=== PATIENT | male | born 1945 | race Caucasian/White ===

== ENCOUNTER 2018-05-18 01:53 | Outpatient (CLI) | payer OTHER, SELFPAY ==
[2018-05-18 11:16] LABS: INR 3.1 (1.0-3.5); Prothrombin Time 29.4 sec (9.3-10.8)
== END 2018-05-18 02:13 ==
PROVIDERS: Emergency Medicine; PCP Family Medicine; Visit Provider Family Medicine
DX: I48.91 Unspecified atrial fibrillation (principal); Z79.01 Long term (current) use of anticoagulants
CPT/HCPCS: 36415; 85610

== ENCOUNTER 2018-06-03 07:53 | Outpatient (CLI) | payer OTHER, SELFPAY ==
[2018-06-03 11:43] LABS: INR 1.9 (1.0-3.5); Prothrombin Time 17.8 sec (9.3-10.8)
== END 2018-06-03 08:13 ==
PROVIDERS: Emergency Medicine; PCP Family Medicine; Visit Provider Family Medicine
DX: I48.91 Unspecified atrial fibrillation (principal); Z79.01 Long term (current) use of anticoagulants
CPT/HCPCS: 36415; 85610

== ENCOUNTER 2018-06-03 08:59 | Outpatient (CLI) | payer OTHER, SELFPAY ==
[2018-05-26 13:11] LABS: Prothrombin Time 38.7 sec (9.3-10.8)
[2018-05-26 13:14] LABS: INR 4.2 (1.0-3.5)
== END 2018-06-03 09:19 ==
PROVIDERS: Emergency Medicine; PCP Family Medicine; Visit Provider Family Medicine
DX: I48.91 Unspecified atrial fibrillation (principal); Z79.01 Long term (current) use of anticoagulants
CPT/HCPCS: 36415; 85610

== ENCOUNTER 2018-06-17 02:51 | Outpatient (CLI) | payer OTHER, SELFPAY ==
[2018-06-17 13:24] LABS: INR 2.9 (1.0-3.5); Prothrombin Time 27.6 sec (9.3-10.8)
== END 2018-06-17 03:11 ==
PROVIDERS: PCP Family Medicine; Visit Provider Family Medicine
DX: I48.91 Unspecified atrial fibrillation (principal); Z79.01 Long term (current) use of anticoagulants
CPT/HCPCS: 36415; 85610

== ENCOUNTER 2018-08-16 01:10 | Outpatient (CLI) | payer OTHER, SELFPAY ==
[2018-08-16 12:00] LABS: INR 3.3 (1.0-3.5); Prothrombin Time 31.1 sec (9.3-10.8)
[2018-08-16 12:22] LABS: Uric Acid 6.5 mg/dL (3.5-7.2)
[2018-08-16 12:31] LABS: Hemoglobin A1C 6.3 % (4.5-6.2)
== END 2018-08-16 01:30 ==
PROVIDERS: Emergency Medicine; PCP Family Medicine; Visit Provider Family Medicine
DX: E11.9 Type 2 diabetes mellitus without complications (principal); M10.9 Gout, unspecified; I48.91 Unspecified atrial fibrillation; Z79.01 Long term (current) use of anticoagulants
CPT/HCPCS: 36415; 83036; 84550; 85610

== ENCOUNTER 2018-08-23 02:06 | Outpatient (CLI) | payer OTHER, SELFPAY ==
[2018-08-23 11:19] LABS: INR 2.5 (1.0-3.5); Prothrombin Time 23.2 sec (9.3-10.8)
== END 2018-08-23 02:26 ==
PROVIDERS: PCP Family Medicine; Visit Provider Family Medicine
DX: I48.91 Unspecified atrial fibrillation (principal); Z79.01 Long term (current) use of anticoagulants
CPT/HCPCS: 36415; 85610

== ENCOUNTER 2018-08-29 00:27 | Outpatient (CLI) | payer OTHER, SELFPAY ==
--- NOTE | 2018-08-29 09:46 | DI.RAD_ITS ---
SYMPTOMS/DIAGNOSIS: DYSPHAGIA, PILLS GET CAUGHT IN THROAT, R13.10 BARIUM SWALLOW: Fluoroscopy Time: 00.59 Routine examination was performed. There is penetration into the upper airway but not below the vocal cords. No evi aspiration was identified during the examination. The swallowing mechanism was otherwise unremarkable. No gastroesophageal reflux is present. There is a small hiatal hernia. No ulcers, strictures, intrinsic or extrinsic masses are seen. The patient was able to swallow a barium tablet without difficulty. The heart size is within normal limits. The patient has both an aortic and mitral valve replacement. There is a small to moderate sized left pleural effusion. IMPRESSION: 1. Penetration during swallowing without evi aspiration. 2. Small hiatal hernia. No evidence of gastroesophageal reflux. 3. Small to moderate sized left pleural effusion.
[2018-08-29] MEDS: Barium Sulfate 60% W/V 355 ML BTL PO (12:30)
== END 2018-08-29 00:47 ==
PROVIDERS: PCP Family Medicine; Visit Provider Family Medicine
DX: R13.10 Dysphagia, unspecified (principal); K44.9 Diaphragmatic hernia without obstruction or gangrene; J90 Pleural effusion, not elsewhere classified
CPT/HCPCS: 74220; J3490

== ENCOUNTER 2018-09-21 01:09 | Outpatient (CLI) | payer OTHER, SELFPAY ==
[2018-09-21 12:00] LABS: INR 2.1 (0.9-1.1); Prothrombin Time 21.1 sec (9.3-11.0)
== END 2018-09-21 01:29 ==
PROVIDERS: PCP Family Medicine; Visit Provider Family Medicine
DX: I48.91 Unspecified atrial fibrillation (principal); Z79.01 Long term (current) use of anticoagulants
CPT/HCPCS: 36415; 85610

== ENCOUNTER 2018-11-17 08:45 | Outpatient (CLI) | payer OTHER, SELFPAY ==
[2018-11-17 11:28] LABS: INR 2.7 (0.9-1.1); Prothrombin Time 27.4 sec (9.3-11.0)
== END 2018-11-17 09:05 ==
PROVIDERS: Emergency Medicine; PCP Family Medicine; Visit Provider Family Medicine
DX: I48.91 Unspecified atrial fibrillation (principal); Z79.01 Long term (current) use of anticoagulants
CPT/HCPCS: 36415; 85610

== ENCOUNTER 2019-01-31 08:20 | Outpatient (CLI) | payer OTHER, SELFPAY ==
[2019-01-31 11:15] LABS: Prothrombin Time 29.9 sec (9.3-11.0)
== END 2019-01-31 08:40 ==
PROVIDERS: Emergency Medicine; PCP Family Medicine; Visit Provider Family Medicine
DX: I48.91 Unspecified atrial fibrillation (principal); Z79.01 Long term (current) use of anticoagulants
CPT/HCPCS: 36415; 85610

== ENCOUNTER 2019-02-17 03:08 | Outpatient (CLI) | payer OTHER, SELFPAY ==
[2019-02-17 13:16] LABS: Prothrombin Time 40.5 sec (9.3-11.0)
== END 2019-02-17 03:28 ==
PROVIDERS: Emergency Medicine; PCP Family Medicine; Visit Provider Family Medicine
DX: I48.91 Unspecified atrial fibrillation (principal); Z79.01 Long term (current) use of anticoagulants
CPT/HCPCS: 36415; 85610

== ENCOUNTER 2019-02-22 07:47 | Outpatient (CLI) | payer OTHER, SELFPAY ==
[2019-02-22 13:05] LABS: INR 2.2 (0.9-1.1); Prothrombin Time 21.7 sec (9.3-11.0)
== END 2019-02-22 08:07 ==
PROVIDERS: PCP Family Medicine; Visit Provider Family Medicine
DX: I48.91 Unspecified atrial fibrillation (principal); Z79.01 Long term (current) use of anticoagulants
CPT/HCPCS: 36415; 85610

== ENCOUNTER 2019-03-02 01:22 | Outpatient (CLI) | payer OTHER, SELFPAY ==
[2019-03-02 10:01] LABS: INR 1.4 (0.9-1.1)
[2019-03-02 10:05] LABS: Hemoglobin A1C 6.8 % (4.5-6.2)
[2019-03-02 10:13] LABS: ALT 27 U/L (12-78); AST 26 U/L (15-37); Albumin 3.7 g/dL (3.4-5.0); Alkaline Phosphatase 96 U/L (46-116); Anion Gap 11.4 mmol/L (3-11); BUN 18 mg/dL (7-18); Bilirubin, Total 0.6 mg/dL (0.2-1.0); CO2 27.6 mmol/L (21.0-32.0); CREATININE 1.24 mg/dL (0.70-1.30); Calcium 9.4 mg/dL (8.5-10.1); Calculated LDL 78; Chloride 101 mmol/L (98-107); Cholesterol 167 mg/dL (50-200); Estimated GFR 57.47 (mL/min/1.73m2); Glucose 229 mg/dL (70-100); HDL Cholesterol 29 mg/dL (40-60); Potassium 4.4 mmol/L (3.5-5.1); Sodium 140 mmol/L (136-145); Total Protein 7.5 g/dL (6.4-8.2); Triglyceride 303 mg/dL (30-150)
[2019-03-02 10:23] LABS: COMMENT (LAB VIEW ONLY) 194.42 mg/dL; Microalb ug/mg Crea 185.4 ug/mg Cr
[2019-03-02 10:42] LABS: Uric Acid 7.1 mg/dL (3.5-7.2)
== END 2019-03-02 01:42 ==
PROVIDERS: PCP Family Medicine; Visit Provider Family Medicine
DX: E11.9 Type 2 diabetes mellitus without complications (principal); I10 Essential (primary) hypertension; I25.10 Atherosclerotic heart disease of native coronary artery without angina pectoris; M10.9 Gout, unspecified; I48.91 Unspecified atrial fibrillation; Z79.01 Long term (current) use of anticoagulants
CPT/HCPCS: 36415; 80053; 80061; 83721; 82043; 82570; 83036; 84550; 85610

== ENCOUNTER 2019-03-09 01:42 | Outpatient (CLI) | payer OTHER, SELFPAY ==
[2019-03-09 13:04] LABS: INR 2.8 (0.9-1.1); Prothrombin Time 27.8 sec (9.3-11.0)
== END 2019-03-09 02:02 ==
PROVIDERS: Emergency Medicine; PCP Family Medicine; Visit Provider Family Medicine
DX: I48.91 Unspecified atrial fibrillation (principal); Z79.01 Long term (current) use of anticoagulants
CPT/HCPCS: 36415; 85610

== ENCOUNTER 2019-03-30 20:10 | Outpatient (CLI) | payer OTHER, SELFPAY ==
--- NOTE | 2019-03-30 15:00 | DI.RAD_ITS ---
SYMPTOM/DIAGNOSIS: CHEST CONGESTION, R09.89 PA AND LATERAL CHEST: There is an apparent small left pleural effusion and volume loss involving the left lower lobe. The right lung is well expanded and clear. There is no right pleural effusion. The heart is not enlarged in this patient who is status post CABG and MVR. The hilar structures, mediastinum and tracheal air column are intact. SUMMARY: Small left pleural effusion, question area of infiltration or atelectasis involving the left lower lobe. The possibility of an acute pneumonitis could not be excluded in this patient and follow up images are requested when clinically appropriate or in 6-8 weeks.
[2019-03-30 15:32] LABS: Abs Immature Grans 0.02 k/cumm (0.0-0.09); Absolute Basophil Count 0.02 k/cumm (0.0-0.2); Absolute Eosinophil Count 0.18 k/cumm (0.0-0.7); Absolute Lymphocyte Count 1.35 k/cumm (1.2-3.4); Absolute Monocyte Count 1.04 k/cumm (0.11-0.7); Absolute Neutrophil Count 6.69 k/cumm (1.2-6.7); Basophils % 0.2; Eosinophils % 1.9; HCT 37.7 % (40.0-50.0); HGB 12.8 g/dL (13.5-17.5); Immature Grans % 0.2; Lymphocytes % 14.5; Mean Corpuscular Hemoglobin 32.6 pg (27.0-33.0); Mean Corpuscular Volume 95.9 fL (80-95); Mean Platelet Volume 9.8 fL (8.0-11.0); Monocytes % 11.2; Platelet Count 232 x1000/uL (130-400); RBC 3.93 m/cumm (4.50-6.00); RBC Distribution Width 13.9 % (11.8-14.1)
[2019-03-30 16:18] LABS: ALT 27 U/L (12-78); AST 25 U/L (15-37); Albumin 3.6 g/dL (3.4-5.0); Alkaline Phosphatase 89 U/L (46-116); Anion Gap 14.3 mmol/L (3-11); BUN 14 mg/dL (7-18); Bilirubin, Total 0.3 mg/dL (0.2-1.0); C-Reactive Protein 0.23 mg/dL (0.0-0.3); CO2 21.7 mmol/L (21.0-32.0); Calcium 9.6 mg/dL (8.5-10.1); Chloride 102 mmol/L (98-107); Glucose 150 mg/dL (70-100); Potassium 4.3 mmol/L (3.5-5.1); Sodium 138 mmol/L (136-145); Total Protein 7.4 g/dL (6.4-8.2)
[2019-03-30 16:53] LABS: ESR 48 mm/hr (1-20)
== END 2019-03-30 20:30 ==
PROVIDERS: PCP Family Medicine; Visit Provider Family Medicine
DX: R09.89 Other specified symptoms and signs involving the circulatory and respiratory systems (principal); E11.9 Type 2 diabetes mellitus without complications; I10 Essential (primary) hypertension; J06.9 Acute upper respiratory infection, unspecified; R23.2 Flushing; R61 Generalized hyperhidrosis; J90 Pleural effusion, not elsewhere classified; Z95.1 Presence of aortocoronary bypass graft; Z95.2 Presence of prosthetic heart valve
CPT/HCPCS: 36415; 80053; 85652; 87040; 71046; 85025; 86140

== ENCOUNTER 2019-04-03 09:33 | Outpatient (CLI) | payer OTHER, SELFPAY ==
[2019-04-03 13:16] LABS: Prothrombin Time 50.6 sec (9.3-11.0)
== END 2019-04-03 09:53 ==
PROVIDERS: PCP Family Medicine; Visit Provider Family Medicine
DX: I48.91 Unspecified atrial fibrillation (principal); Z79.01 Long term (current) use of anticoagulants
CPT/HCPCS: 36415; 85610

== ENCOUNTER 2019-04-06 02:06 | Outpatient (CLI) | payer OTHER, SELFPAY ==
[2019-04-06 13:11] LABS: INR 1.6 (0.9-1.1); Prothrombin Time 15.6 sec (9.3-11.0)
== END 2019-04-06 02:26 ==
PROVIDERS: Emergency Medicine; PCP Family Medicine; Visit Provider Family Medicine
DX: I48.91 Unspecified atrial fibrillation (principal); Z79.01 Long term (current) use of anticoagulants
CPT/HCPCS: 36415; 85610

== ENCOUNTER 2019-04-14 04:17 | Outpatient (CLI) | payer OTHER, SELFPAY ==
[2019-04-14 11:18] LABS: INR 2.2 (0.9-1.1); Prothrombin Time 22.5 sec (9.3-11.0)
== END 2019-04-14 04:37 ==
PROVIDERS: Emergency Medicine; PCP Family Medicine; Visit Provider Family Medicine
DX: I48.91 Unspecified atrial fibrillation (principal); Z79.01 Long term (current) use of anticoagulants
CPT/HCPCS: 36415; 85610

== ENCOUNTER 2019-04-27 08:52 | Outpatient (CLI) | payer OTHER, SELFPAY ==
[2019-04-27 13:21] LABS: Prothrombin Time 25.7 sec (9.3-11.0)
[2019-04-27 13:25] LABS: INR 2.5 (0.9-1.1)
== END 2019-04-27 09:12 ==
PROVIDERS: PCP Family Medicine; Visit Provider Family Medicine
DX: I48.91 Unspecified atrial fibrillation (principal); Z79.01 Long term (current) use of anticoagulants
CPT/HCPCS: 36415; 85610

== ENCOUNTER 2019-05-29 08:18 | Outpatient (CLI) | payer OTHER, SELFPAY ==
[2019-05-29 13:40] LABS: INR 3.1 (0.9-1.1)
== END 2019-05-29 08:38 ==
PROVIDERS: PCP Family Medicine; Visit Provider Family Medicine
DX: I48.91 Unspecified atrial fibrillation (principal); Z79.01 Long term (current) use of anticoagulants
CPT/HCPCS: 36415; 85610

== ENCOUNTER 2019-06-27 02:18 | Outpatient (CLI) | payer OTHER, SELFPAY ==
[2019-06-27 14:13] LABS: Hemoglobin A1C 6.7 % (4.5-6.2)
[2019-06-27 14:29] LABS: Prothrombin Time 23.1 sec (9.3-11.0)
[2019-06-27 14:30] LABS: INR 2.3 (0.9-1.1)
== END 2019-06-27 02:38 ==
PROVIDERS: PCP Family Medicine; Visit Provider Family Medicine
DX: I48.91 Unspecified atrial fibrillation (principal); Z79.01 Long term (current) use of anticoagulants; E11.9 Type 2 diabetes mellitus without complications
CPT/HCPCS: 36415; 83036; 85610

== ENCOUNTER 2019-07-28 01:53 | Outpatient (CLI) | payer OTHER, SELFPAY ==
[2019-07-28 14:26] LABS: INR 2.7 (0.9-1.1); Prothrombin Time 26.9 sec (9.3-11.0)
== END 2019-07-28 02:13 ==
PROVIDERS: PCP Family Medicine; Visit Provider Family Medicine
DX: I48.91 Unspecified atrial fibrillation (principal); Z79.01 Long term (current) use of anticoagulants
CPT/HCPCS: 36415; 85610

== ENCOUNTER 2019-08-30 01:20 | Outpatient (CLI) | payer OTHER, SELFPAY ==
[2019-08-30 14:12] LABS: INR 2.5 (0.9-1.1)
== END 2019-08-30 01:40 ==
PROVIDERS: PCP Family Medicine; Visit Provider Family Medicine
DX: I48.91 Unspecified atrial fibrillation (principal); Z79.01 Long term (current) use of anticoagulants
CPT/HCPCS: 36415; 85610

== ENCOUNTER 2019-10-04 08:12 | Outpatient (CLI) | payer OTHER, SELFPAY ==
[2019-10-04 12:53] LABS: Prothrombin Time 19.5 sec (9.3-11.0)
== END 2019-10-04 08:32 ==
PROVIDERS: PCP Family Medicine; Visit Provider Family Medicine
DX: I48.91 Unspecified atrial fibrillation (principal); Z79.01 Long term (current) use of anticoagulants
CPT/HCPCS: 36415; 85610

== ENCOUNTER 2019-10-30 09:19 | Outpatient (CLI) | payer OTHER, SELFPAY ==
[2019-10-30 10:58] LABS: INR 2.9 (0.9-1.1); Prothrombin Time 28.4 sec (9.3-11.0)
== END 2019-10-30 09:39 ==
PROVIDERS: PCP Family Medicine; Visit Provider Family Medicine
DX: I48.91 Unspecified atrial fibrillation (principal); Z79.01 Long term (current) use of anticoagulants
CPT/HCPCS: 36415; 85610

== ENCOUNTER 2019-11-03 02:41 | Outpatient (CLI) | payer OTHER, SELFPAY ==
--- NOTE | 2019-11-03 10:00 | DI.US_ITS ---
APPROVED REPORT EXAM: Comprehensive 2D, Doppler, and color-flow Echocardiogram Patient Location: Out-Patient Picker / Packer: Shauna Briones RDCS ([place]) Indications: MV Annuloplasty, dilated aortic arch, AVR Conclusion Left Ventricle : Mild concentric left ventricular hypertrophy. The left ventricle is normal. The left ventricular systolic function is normal. The left ventricular ejection fraction is within the normal range. Left ventricular systolic function is normal. There is normal LV segmental wall motion. Diast olic function is indeterminate. LVEF is 55-59%. Right Ventricle : The right ventricle is normal size. The right ventricular systolic function is norm al. Atria : Left atrium is borderline dilated. Right atrium is borderline dilated. Aortic Valve : Bioprosthetic aortic valve is present. No aortic regurgitation is present. There is mi ld aortic stenosis (mean gradient 21mmhg) Mitral Valve : Annuloplasty ring is noted in the mitral position. Mild mitral regurgitation. No evide nce of mitral valve stenosis. Tricuspid Valve : The tricuspid valve is normal in structure. Mild tricuspid regurgitation. Great Vessels : The IVC was not visualized. Compared to echocardiogfram from 2017, there is anow a bioprosthetic aortic valve and mitral annulopl asty ring present. Wall motion Left Ventricle The left ventricle is normal. The left ventricular systolic function is normal. The left ventricular ejection fraction is within the normal range. Left ventricular systolic function is normal. Mild conc entric left ventricular hypertrophy. The posterior wall thickness is mildly increased. The septum is normal. There is normal LV segmental wall motion. Diastolic function is indeterminate. LVEF is 55-59% . Right Ventricle The right ventricle is normal size. The right ventricular systolic function is normal. Atria Left atrium is borderline dilated. Right atrium is borderline dilated. Aortic Valve Bioprosthetic aortic valve is present. There is mild aortic stenosis (mean gradient 21mmhg) No aortic regurgitation is present. Bioprosthetic aortic valve is present. Mitral Valve Annuloplasty ring is noted in the mitral position. No evidence of mitral valve stenosis. Mild mitral regurgitation. Annuloplasty ring is noted in the mitral position. Tricuspid Valve The tricuspid valve is normal in structure. Mild tricuspid regurgitation. Pulmonic Valve Pulmonic valve is not well visualized. There is no pulmonic valvular stenosis. Trace pulmonic regurgi tation. Great Vessels The ascending aorta is mildly dilated. The IVC was not visualized. 2D Dimensions IVSD d PLAX 1.20 cm M: 0.6-1.2 LV Vol A2C d MOD 221.1 mL LVPW d PLAX 1.28 cm M: 0.6 - 1.2 LV Vol A4C d MOD 219.9 mL LVID d PLAX 5.34 cm M: 4.2 - 5.8 LA vol/ BSA A2C s A-L 44.4 mL/m2 LVDs 3.95 cm M: 2.5 - 4.0 LA vol/ BSA A4C s A-L 42.8 mL/m2 Ao Root d 2.85 cm M: 3.1 - 3.7 LA Vol/ BSA Biplane s A-L 47.3 mL/m2 RA Area A4C 25.32 cm2 LA Area A4C s MOD 27.61 cm2 RA Vol/ BSA A4C s A-L 39.8 mL/m2 LA Area A2C s MOD 25.94 cm2 Ao Asc Diam d 4.14 cm M: 2.6 - 3.4 LV EF A4C MOD 55.2 % LV EF Teichholz 50.1 % LV EF A2C MOD 54.0 % LVEF (Arellano's) 55.45 % M: 52 - 72 LV EF Biplane MOD 55.4 % LV Volume 165.53 mL M: 62 - 150 LV Volume Index 75.58 mL/m2 M: 34 - 74 LV Vol Biplane MOD 227.5 mL FS 25.65 % LV Diastology E/A Ratio 2.6 MV E Vmax 1.44 (0.4-1.3 m/s) MV A Vmax 0.55 (0.4-1.3 m/s) MV E/A Ratio 2.54 Aortic Valve LVOT Area 2.23 cm2 AoV Area Vmax 0.98 cm2 LVOT Vmax 1.35 m/s AoV Area/ BSA (Vmax) 0.44 cm2/m2 LVOT Mean Jr. 0.87 m/s YAHIR Mean Jr. 0.88 cm2 LVOT Peak Grad 7.3 mmHg YAHIR Mean Jr. Index 0.40 cm2/m2 LVOT Mean Grad 3.6 mmHg LVOT VTI 0.351 m LVOT Diam s 1.65 cm (M/F) 1.5-2.5 AoV Vmax 3.09 (0.5-1.3 m/s) Velocity Ratio 0.43 AoV Mean Jr. 2.20 m/s AoV Peak Grad 38.1 mmHg LVOT SV 78.19 mL AoV Mean Grad 21.1 (<5 mmHg) AoV VTI 0.755 (0.18-0.25 m) AoV Area VTI 1.04 (2.5-4.5 cm2) AoV Area/ BSA (VTI) 0.47 cm/m2 Mitral Valve MV DT 307 (160-240 msec) MR Vmax 5.90 m/s MV PHT 89 msec MR VTI 2.479 m MV Area PHT 2.47 cm2 MR Peak Grad 139.2 mmHg MV VTI 0.607 m MR Mean Grad 91.9 mmHg MV Area VTI 1.29 (4.0-6.0 cm2) MR PISA Radius 0.48 cm MR EROA 0.11 cm2 MR Aliasing Velocity 0.43 m/s MR PISA 1.46 cm2 Pulmonary Valve PV Vmax 0.91 (0.5-1.5 m/s) PV Peak Grad 3.3 mmHg PV Mean Grad 1.9 mmHg PV VTI 0.201 m Tricuspid Valve TR Peak Grad 34.9 mmHg TR Vmax 2.96 m/s
== END 2019-11-03 03:01 ==
PROVIDERS: PCP Family Medicine; Visit Provider Family Medicine
DX: Z95.3 Presence of xenogenic heart valve (principal); I35.0 Nonrheumatic aortic (valve) stenosis; I08.1 Rheumatic disorders of both mitral and tricuspid valves
CPT/HCPCS: 93306

== ENCOUNTER 2019-11-16 10:26 | Outpatient (CLI) | payer OTHER, SELFPAY ==
[2019-11-16 13:24] LABS: Hemoglobin A1C 6.7 % (3.8-5.6)
== END 2019-11-16 10:46 ==
PROVIDERS: PCP Family Medicine; Visit Provider Family Medicine
DX: E11.9 Type 2 diabetes mellitus without complications (principal)
CPT/HCPCS: 36415; 83036

== ENCOUNTER 2019-11-20 10:27 | Outpatient (CLI) | payer OTHER, SELFPAY ==
[2019-11-20 11:05] LABS: Abs Immature Grans 0.03 k/cumm (0.0-0.09); Absolute Basophil Count 0.04 k/cumm (0.0-0.2); Absolute Lymphocyte Count 1.13 k/cumm (1.2-3.4); Absolute Monocyte Count 1.04 k/cumm (0.11-0.7); Absolute Neutrophil Count 7.47 k/cumm (1.2-6.7); Basophils % 0.4; HCT 35.3 % (40.0-50.0); HGB 12.1 g/dL (13.5-17.5); Immature Grans % 0.3 %; Lymphocytes % 11.4; Mean Corp. HGB Concentration 34.3 g/dL (32.0-36.0); Mean Corpuscular Hemoglobin 32.8 pg (27.0-33.0); Mean Corpuscular Volume 95.7 fL (80-95); Mean Platelet Volume 9.4 fL (8.0-11.0); Monocytes % 10.5; Neutrophils % 75.4; Platelet Count 319 x1000/uL (130-400); RBC 3.69 m/cumm (4.50-6.00); RBC Distribution Width 12.5 % (11.8-14.1); White Blood Cell Count 9.91 k/cumm (4.4-10.8)
[2019-11-20 12:19] LABS: ALT 24 U/L (16-63); AST 25 U/L (15-37); Albumin 3.2 g/dL (3.4-5.0); Alkaline Phosphatase 77 U/L (46-116); Anion Gap 10.6 mmol/L (3-11); BUN 24 mg/dL (7-18); Bilirubin, Total 0.3 mg/dL (0.2-1.0); C-Reactive Protein 4.18 mg/dL (0.0-0.3); CO2 24.4 mmol/L (21.0-32.0); CREATININE 1.17 mg/dL (0.70-1.30); Calcium 9.4 mg/dL (8.5-10.1); Chloride 102 mmol/L (98-107); ESR 94 mm/hr (1-20); Glucose 123 mg/dL (74-106); Potassium 4.5 mmol/L (3.5-5.1); Sodium 137 mmol/L (136-145); Total Protein 7.2 g/dL (6.4-8.2)
== END 2019-11-20 10:47 ==
LOC: LOS 10:27 → LBO 10:48
PROVIDERS: PCP Family Medicine; Visit Provider Family Medicine
DX: L03.90 Cellulitis, unspecified (principal); T14.8XXA Other injury of unspecified body region, initial encounter
CPT/HCPCS: 36415; 80053; 85652; 87040; 85025; 86140

== ENCOUNTER 2019-11-20 11:30 | Outpatient (CLI) | payer OTHER, SELFPAY ==
--- NOTE | 2019-11-20 11:15 | DI.RAD_ITS ---
EXAM: XR FOOT RT COMPLETE CLINICAL HISTORY: WOUND OF SKIN, T14.8XXA, ? OSTEOPMYELITIS/DM, M86.9. TECHNIQUE: 2D digital imaging was performed. COMPARISON: No exams were available for comparison FINDINGS: BONES: No acute fracture is present. There does appear to be a small erosion at the medial aspect of the head of the proximal phalanx of the great toe. There is a moderate-sized spur at the plantar orion face of the calcaneus. JOINTS: Moderate degenerative changes are seen at the 1st metatarsophalangeal joint characterized by joint space narrowing, subchondral sclerosis and periarticular spurring. There are mild degenerative changes seen at the interphalangeal joints of the foot and the talonavicular joint. SOFT TISSUE: There is soft tissue swelling of the foot. Vascular calcifications are present in the s oft tissues. IMPRESSION: 1. Small erosion at the medial aspect of the head of the proximal phalanx of the great toe. This can be seen with an inflammatory arthritis. Infection cannot be excluded. MRI may be considered for fu rther evaluation. 2. Degenerative changes of the right foot. The findings are most marked at the 1st metatarsophalange al joint. DATA REPOSITORY: RADIATION DOSE DELIVERED:
== END 2019-11-20 11:50 ==
PROVIDERS: PCP Family Medicine; Visit Provider Family Medicine
DX: M06.4 Inflammatory polyarthropathy (principal); M19.071 Primary osteoarthritis, right ankle and foot; S91.301A Unspecified open wound, right foot, initial encounter
CPT/HCPCS: 73630

== ENCOUNTER 2019-11-23 10:15 | Outpatient (CLI) | payer OTHER, SELFPAY ==
[2019-11-23 15:09] LABS: Prothrombin Time 29.8 sec (9.3-11.0)
== END 2019-11-23 10:35 ==
PROVIDERS: PCP Family Medicine; Visit Provider Family Medicine
DX: I48.91 Unspecified atrial fibrillation (principal); Z79.01 Long term (current) use of anticoagulants
CPT/HCPCS: 36415; 85610

== ENCOUNTER 2019-11-30 08:07 | Outpatient (CLI) | payer OTHER, SELFPAY ==
[2019-11-30 12:50] LABS: Prothrombin Time 27.9 sec (9.3-11.0)
[2019-11-30 13:17] LABS: INR 2.8 (0.9-1.1)
== END 2019-11-30 08:27 ==
PROVIDERS: PCP Family Medicine; Visit Provider Family Medicine
DX: I48.91 Unspecified atrial fibrillation (principal); Z79.01 Long term (current) use of anticoagulants
CPT/HCPCS: 36415; 85610

== ENCOUNTER 2019-12-04 01:57 | Outpatient (CLI) | payer OTHER, SELFPAY ==
--- NOTE | 2019-12-04 14:45 | DI.MRI_ITS ---
EXAM: MR LOWER EXTREMITY RT WO/W CLINICAL HISTORY: ? OSTEOMYLETIS, CELLULITIS, L03.90, INJURY,T14.8XXA TECHNIQUE: Multiplanar multisequence MRI was performed. COMPARISON: XR FOOT RT COMPLETE from 11/20/2019 FINDINGS: MR examination of the foot was performed according to the usual protocol with additional pre and post contrast T1 fat sat imaging. There is a hallux valgus deformity and there are prominent cystic dege nerative and hypertrophic changes of the head of 1st metatarsal and to a lesser degree the base of th e proximal phalanx of the great toe. No enhancement or other abnormal signal associated with these b ones. There is markedly abnormal signal of distal phalanx of the great toe appreciated on all pulse sequenc es with significant enhancement of the distal phalanx. Findings are suspicious for osteomyelitis. Abnormal signal also noted in all 3 phalanges of the 2nd toe and there is enhancement of the proximal middle and distal phalanx of the 2nd toe raising the possibility of osteomyelitis. I would note moy t the images of the 2nd toe are not of ideal technical quality and findings are to a degree inconclus kerri. No other significant bony signal abnormality identified in the midfoot or forefoot. No gross tendino us abnormality seen. No evidence of abscess. IMPRESSION: Findings highly suggestive of osteomyelitis of the distal phalanx of the great toe. Suspicion of ost eomyelitis of the proximal, middle and distal phalanges of the 2nd toe as well. Hallux valgus deformity with moderate to severe degenerative changes at the 1st MTP joint DATA REPOSITORY:
[2019-12-04] MEDS: Normal Saline Flush 10 ML SYR IVP (15:28)
[2019-12-04] MEDS: Gadoterate meglumine 20 ML VIAL IVP (15:29)
== END 2019-12-04 02:17 ==
PROVIDERS: PCP Family Medicine; Visit Provider Family Medicine
DX: L03.115 Cellulitis of right lower limb (principal); M86.171 Other acute osteomyelitis, right ankle and foot; M20.11 Hallux valgus (acquired), right foot; M19.071 Primary osteoarthritis, right ankle and foot
CPT/HCPCS: 73720

== ENCOUNTER 2019-12-12 13:46 | Outpatient (RCR) | payer OTHER, SELFPAY ==
[2019-12-10] MEDS: cefTRIAXone 2 GM/50 ML BAG IVPB (12:04)
[2019-12-10] MEDS: Normal Saline Flush 10 ML SYR IVP (12:07)
[2019-12-11] MEDS: cefTRIAXone 2 GM/50 ML BAG IVPB ×2 (12:30→12:32)
[2019-12-11] MEDS: Normal Saline Flush 10 ML SYR IVP ×2 (12:31→13:00)
[2019-12-11 12:57] LABS: Abs Immature Grans 0.02 k/cumm (0.0-0.09); Absolute Basophil Count 0.05 k/cumm (0.0-0.2); Absolute Eosinophil Count 0.25 k/cumm (0.0-0.7); Absolute Lymphocyte Count 1.12 k/cumm (1.2-3.4); Absolute Monocyte Count 0.96 k/cumm (0.11-0.7); Basophils % 0.6; Eosinophils % 3.1; HCT 33.7 % (40.0-50.0); HGB 11.4 g/dL (13.5-17.5); Immature Grans % 0.2 %; Lymphocytes % 13.8; Mean Corp. HGB Concentration 33.8 g/dL (32.0-36.0); Mean Corpuscular Hemoglobin 32.7 pg (27.0-33.0); Mean Corpuscular Volume 96.6 fL (80-95); Monocytes % 11.9; Neutrophils % 70.4; Platelet Count 287 x1000/uL (130-400); RBC 3.49 m/cumm (4.50-6.00); RBC Distribution Width 12.8 % (11.8-14.1)
[2019-12-11 13:19] LABS: ALT 32 U/L (16-63); AST 28 U/L (15-37); Albumin 3.2 g/dL (3.4-5.0); Alkaline Phosphatase 87 U/L (46-116); Anion Gap 7.1 mmol/L (3-11); BUN 22 mg/dL (7-18); Bilirubin, Total 0.3 mg/dL (0.2-1.0); C-Reactive Protein 1.21 mg/dL (0.0-0.3); CO2 26.9 mmol/L (21.0-32.0); CREATININE 1.21 mg/dL (0.70-1.30); Calcium 9.5 mg/dL (8.5-10.1); Chloride 102 mmol/L (98-107); Estimated GFR 58.95 (mL/min/1.73m2); Glucose 137 mg/dL (74-106); Potassium 4.2 mmol/L (3.5-5.1); Sodium 136 mmol/L (136-145); Total Protein 7.2 g/dL (6.4-8.2)
[2019-12-11 13:20] LABS: INR 1.1 (0.9-1.1); Prothrombin Time 11.3 sec (9.3-11.0)
[2019-12-12] MEDS: cefTRIAXone 2 GM/50 ML BAG 100 GM (12:40)
[2019-12-12] MEDS: Normal Saline Flush 10 ML SYR IVP (12:40)
== END 2019-12-12 23:59 | disposition other institution (70) ==
LOC: INF 13:46
PROVIDERS: Internal Medicine Infectious Disease; PCP Family Medicine; Visit Provider Nurse Practitioner Family
DX: M86.9 Osteomyelitis, unspecified (principal)
CPT/HCPCS: 36592; 80053; 96365; 85025; 85610; 86140

== ENCOUNTER 2019-12-28 01:05 | Outpatient (CLI) | payer OTHER, SELFPAY ==
--- NOTE | 2019-12-28 10:20 | DI.US_ITS ---
EXAM: US THYROID CLINICAL HISTORY: THYROID NODULE, E04.1, F/U. TECHNIQUE: Ultrasound thyroid performed using standard protocol. COMPARISON: THYROID ULTRASOUND from 12/16/2017 FINDINGS: ISTHMUS: 3 mm RIGHT LOBE: Size: 4.0 x 1.9 x 1.4 cm Echogenicity: Normal. Vascularity: Normal. Nodules: 4 millimeter colloid nodule at the lower pole. LEFT LOBE: Size: 4.9 x 3.5 x 3 cm Echogenicity: Normal. Vascularity: Normal. Nodules: 4.3 x 2.7 x 2.6 centimeter solid nodule in the mid portion of the left lobe. OTHER FINDINGS: None. IMPRESSION: Stable appearance left thyroid nodule. DATA REPOSITORY:
== END 2019-12-28 01:25 ==
PROVIDERS: PCP Family Medicine; Visit Provider Otolaryngology
DX: E04.1 Nontoxic single thyroid nodule (principal)
CPT/HCPCS: 76536

== ENCOUNTER 2020-01-11 01:03 | Outpatient (RCR) | payer OTHER, SELFPAY ==
[2019-12-13] MEDS: Normal Saline Flush 10 ML SYR IVP (12:21)
[2019-12-13] MEDS: cefTRIAXone 2 GM/50 ML BAG IVPB (12:21)
[2019-12-14] MEDS: cefTRIAXone 2 GM/50 ML BAG IVPB (12:28)
[2019-12-14] MEDS: Normal Saline Flush 10 ML SYR IVP (12:29)
[2019-12-14 12:45] LABS: INR 1.4 (0.9-1.1); Prothrombin Time 13.7 sec (9.3-11.0)
[2019-12-15] MEDS: Normal Saline Flush 10 ML SYR IVP (12:22)
[2019-12-15] MEDS: cefTRIAXone 2 GM/50 ML BAG IVPB (12:22)
[2019-12-16] MEDS: Normal Saline Flush 10 ML SYR IVP (12:29)
[2019-12-16] MEDS: cefTRIAXone 2 GM/50 ML BAG IVPB (12:30)
[2019-12-17] MEDS: cefTRIAXone 2 GM/50 ML BAG IVPB (11:47)
[2019-12-17] MEDS: Normal Saline Flush 10 ML SYR IVP (11:47)
[2019-12-18] MEDS: cefTRIAXone 2 GM/50 ML BAG IVPB (14:22)
[2019-12-18] MEDS: Normal Saline Flush 10 ML SYR IVP (14:23)
[2019-12-18 14:38] LABS: Abs Immature Grans 0.03 k/cumm (0.0-0.09); Absolute Basophil Count 0.04 k/cumm (0.0-0.2); Absolute Eosinophil Count 0.17 k/cumm (0.0-0.7); Absolute Lymphocyte Count 1.64 k/cumm (1.2-3.4); Absolute Monocyte Count 0.93 k/cumm (0.11-0.7); Basophils % 0.5; HCT 34.6 % (40.0-50.0); HGB 11.9 g/dL (13.5-17.5); Immature Grans % 0.4 %; Lymphocytes % 19.5; Mean Corp. HGB Concentration 34.4 g/dL (32.0-36.0); Mean Corpuscular Volume 95.8 fL (80-95); Mean Platelet Volume 9.9 fL (8.0-11.0); Monocytes % 11.1; Neutrophils % 66.5; Platelet Count 328 x1000/uL (130-400); RBC 3.61 m/cumm (4.50-6.00); RBC Distribution Width 12.9 % (11.8-14.1); White Blood Cell Count 8.41 k/cumm (4.4-10.8)
[2019-12-18 14:52] LABS: ALT 37 U/L (16-63); AST 39 U/L (15-37); Albumin 3.6 g/dL (3.4-5.0); Alkaline Phosphatase 64 U/L (46-116); Anion Gap 8.6 mmol/L (3-11); BUN 21 mg/dL (7-18); Bilirubin, Total 0.3 mg/dL (0.2-1.0); C-Reactive Protein 0.15 mg/dL (0.0-0.3); CO2 25.4 mmol/L (21.0-32.0); CREATININE 1.24 mg/dL (0.70-1.30); Calcium 10.4 mg/dL (8.5-10.1); Chloride 102 mmol/L (98-107); Glucose 107 mg/dL (74-106); Potassium 4.4 mmol/L (3.5-5.1); Sodium 136 mmol/L (136-145); Total Protein 8.1 g/dL (6.4-8.2)
[2019-12-19] MEDS: cefTRIAXone 2 GM/50 ML BAG IVPB (12:34)
[2019-12-19] MEDS: Normal Saline Flush 10 ML SYR IVP (12:36)
[2019-12-20] MEDS: cefTRIAXone 2 GM/50 ML BAG IVPB (12:25)
[2019-12-20] MEDS: Normal Saline Flush 10 ML SYR IVP (12:25)
[2019-12-20 13:38] LABS: INR 3.9 (0.9-1.1); Prothrombin Time 37.7 sec (9.3-11.0)
[2019-12-21] MEDS: cefTRIAXone 2 GM/50 ML BAG IVPB (12:32)
[2019-12-21] MEDS: Normal Saline Flush 10 ML SYR IVP (12:36)
[2019-12-22] MEDS: cefTRIAXone 2 GM/50 ML BAG IVPB (12:12)
[2019-12-22] MEDS: Normal Saline Flush 10 ML SYR IVP (12:13)
[2019-12-22 12:31] LABS: INR 3.1 (0.9-1.1); Prothrombin Time 30.4 sec (9.3-11.0)
[2019-12-23] MEDS: cefTRIAXone 2 GM/50 ML BAG IVPB (12:38)
[2019-12-23] MEDS: Normal Saline Flush 10 ML SYR IVP (12:38)
[2019-12-24] MEDS: Normal Saline Flush 10 ML SYR IVP (12:24)
[2019-12-24] MEDS: cefTRIAXone 2 GM/50 ML BAG IVPB (12:24)
[2019-12-25] MEDS: cefTRIAXone 2 GM/50 ML BAG IVPB (12:21)
[2019-12-25] MEDS: Normal Saline Flush 10 ML SYR IVP (12:22)
[2019-12-25 12:49] LABS: Abs Immature Grans 0.01 k/cumm (0.0-0.09); Absolute Basophil Count 0.07 k/cumm (0.0-0.2); Absolute Eosinophil Count 0.18 k/cumm (0.0-0.7); Absolute Lymphocyte Count 1.24 k/cumm (1.2-3.4); Absolute Monocyte Count 0.86 k/cumm (0.11-0.7); Absolute Neutrophil Count 6.54 k/cumm (1.2-6.7); Basophils % 0.8; HCT 35.6 % (40.0-50.0); HGB 11.9 g/dL (13.5-17.5); Immature Grans % 0.1 %; Lymphocytes % 13.9; Mean Corp. HGB Concentration 33.4 g/dL (32.0-36.0); Mean Corpuscular Hemoglobin 32.2 pg (27.0-33.0); Mean Corpuscular Volume 96.5 fL (80-95); Mean Platelet Volume 10.4 fL (8.0-11.0); Monocytes % 9.7; Neutrophils % 73.5; Platelet Count 288 x1000/uL (130-400); RBC 3.69 m/cumm (4.50-6.00); RBC Distribution Width 12.9 % (11.8-14.1)
[2019-12-25 13:12] LABS: ALT 32 U/L (16-63); AST 27 U/L (15-37); Albumin 3.4 g/dL (3.4-5.0); Alkaline Phosphatase 70 U/L (46-116); Anion Gap 9.2 mmol/L (3-11); BUN 19 mg/dL (7-18); Bilirubin, Total 0.3 mg/dL (0.2-1.0); C-Reactive Protein 0.41 mg/dL (0.0-0.3); CO2 23.8 mmol/L (21.0-32.0); CREATININE 1.19 mg/dL (0.70-1.30); Calcium 9.7 mg/dL (8.5-10.1); Chloride 101 mmol/L (98-107); Glucose 148 mg/dL (74-106); Potassium 4.4 mmol/L (3.5-5.1); Sodium 134 mmol/L (136-145); Total Protein 7.9 g/dL (6.4-8.2)
[2019-12-26] MEDS: cefTRIAXone 2 GM/50 ML BAG IVPB (12:07)
[2019-12-26] MEDS: Normal Saline Flush 10 ML SYR IVP (12:08)
[2019-12-27] MEDS: cefTRIAXone 2 GM/50 ML BAG IVPB (11:54)
[2019-12-27] MEDS: Normal Saline Flush 10 ML SYR IVP (11:54)
[2019-12-28] MEDS: cefTRIAXone 2 GM/50 ML BAG IVPB (11:25)
[2019-12-28] MEDS: Normal Saline Flush 10 ML SYR IVP (11:26)
[2019-12-29] MEDS: cefTRIAXone 2 GM/50 ML BAG IVPB (12:27)
[2019-12-29] MEDS: Normal Saline Flush 10 ML SYR IVP (12:27)
[2019-12-29 13:10] LABS: INR 3.7 (0.9-1.1); Prothrombin Time 35.8 sec (9.3-11.0)
[2019-12-30] MEDS: cefTRIAXone 2 GM/50 ML BAG IVPB (12:03)
[2019-12-30] MEDS: Normal Saline Flush 10 ML SYR IVP (12:04)
[2019-12-31] MEDS: cefTRIAXone 2 GM/50 ML BAG IVPB (12:13)
[2019-12-31] MEDS: Normal Saline Flush 10 ML SYR IVP (12:13)
[2020-01-01] MEDS: Normal Saline Flush 10 ML SYR IVP (11:43)
[2020-01-01] MEDS: cefTRIAXone 2 GM/50 ML BAG IVPB (11:43)
[2020-01-01 12:13] LABS: Abs Immature Grans 0.02 k/cumm (0.0-0.09); Absolute Basophil Count 0.05 k/cumm (0.0-0.2); Absolute Eosinophil Count 0.25 k/cumm (0.0-0.7); Absolute Lymphocyte Count 1.15 k/cumm (1.2-3.4); Absolute Monocyte Count 0.82 k/cumm (0.11-0.7); Absolute Neutrophil Count 4.48 k/cumm (1.2-6.7); Basophils % 0.7; Eosinophils % 3.7; HCT 34.6 % (40.0-50.0); HGB 11.6 g/dL (13.5-17.5); Immature Grans % 0.3 %; Mean Corp. HGB Concentration 33.5 g/dL (32.0-36.0); Mean Corpuscular Hemoglobin 32.1 pg (27.0-33.0); Mean Corpuscular Volume 95.8 fL (80-95); Monocytes % 12.1; Neutrophils % 66.2; Platelet Count 266 x1000/uL (130-400); RBC 3.61 m/cumm (4.50-6.00); RBC Distribution Width 12.7 % (11.8-14.1); White Blood Cell Count 6.77 k/cumm (4.4-10.8)
[2020-01-01 12:29] LABS: ALT 30 U/L (16-63); AST 29 U/L (15-37); Albumin 3.2 g/dL (3.4-5.0); Alkaline Phosphatase 65 U/L (46-116); BUN 16 mg/dL (7-18); Bilirubin, Total 0.3 mg/dL (0.2-1.0); CREATININE 1.24 mg/dL (0.70-1.30); Calcium 9.6 mg/dL (8.5-10.1); Chloride 104 mmol/L (98-107); Glucose 117 mg/dL (74-106); Potassium 4.4 mmol/L (3.5-5.1); Sodium 139 mmol/L (136-145); Total Protein 7.4 g/dL (6.4-8.2)
[2020-01-01 12:30] LABS: C-Reactive Protein < 0.05 mg/dL (0.0-0.3)
[2020-01-02] MEDS: cefTRIAXone 2 GM/50 ML BAG IVPB (11:52)
[2020-01-02] MEDS: Normal Saline Flush 10 ML SYR IVP (11:52)
[2020-01-03] MEDS: cefTRIAXone 2 GM/50 ML BAG IVPB (11:59)
[2020-01-03] MEDS: Normal Saline Flush 10 ML SYR IVP (12:00)
[2020-01-04] MEDS: cefTRIAXone 2 GM/50 ML BAG IVPB (11:46)
[2020-01-04] MEDS: Normal Saline Flush 10 ML SYR IVP (11:47)
[2020-01-04 12:22] LABS: INR 2.2 (0.9-1.1); Prothrombin Time 22.1 sec (9.3-11.0)
[2020-01-05] MEDS: cefTRIAXone 2 GM/50 ML BAG IVPB (11:49)
[2020-01-05] MEDS: Normal Saline Flush 10 ML SYR IVP (11:50)
[2020-01-06] MEDS: cefTRIAXone 2 GM/50 ML BAG IVPB (12:24)
[2020-01-06] MEDS: Normal Saline Flush 10 ML SYR IVP (12:25)
[2020-01-07] MEDS: cefTRIAXone 2 GM/50 ML BAG IVPB (12:26)
[2020-01-07] MEDS: Normal Saline Flush 10 ML SYR IVP (12:26)
[2020-01-08] MEDS: cefTRIAXone 2 GM/50 ML BAG IVPB (11:46)
[2020-01-08] MEDS: Normal Saline Flush 10 ML SYR IVP (11:47)
[2020-01-08 12:01] LABS: Abs Immature Grans 0.02 k/cumm (0.0-0.09); Absolute Basophil Count 0.06 k/cumm (0.0-0.2); Absolute Eosinophil Count 0.23 k/cumm (0.0-0.7); Absolute Lymphocyte Count 1.16 k/cumm (1.2-3.4); Absolute Monocyte Count 0.86 k/cumm (0.11-0.7); Basophils % 0.9; Eosinophils % 3.4; HCT 35.6 % (40.0-50.0); Immature Grans % 0.3 %; Mean Corp. HGB Concentration 33.7 g/dL (32.0-36.0); Mean Corpuscular Hemoglobin 32.2 pg (27.0-33.0); Mean Corpuscular Volume 95.4 fL (80-95); Mean Platelet Volume 9.9 fL (8.0-11.0); Monocytes % 12.6; Neutrophils % 65.8; Platelet Count 267 x1000/uL (130-400); RBC 3.73 m/cumm (4.50-6.00); RBC Distribution Width 13.1 % (11.8-14.1); White Blood Cell Count 6.83 k/cumm (4.4-10.8)
[2020-01-08 12:37] LABS: ALT 26 U/L (16-63); AST 33 U/L (15-37); Albumin 3.2 g/dL (3.4-5.0); Alkaline Phosphatase 47 U/L (46-116); Anion Gap 6.7 mmol/L (3-11); BUN 17 mg/dL (7-18); Bilirubin, Total 0.4 mg/dL (0.2-1.0); CO2 27.3 mmol/L (21.0-32.0); CREATININE 1.15 mg/dL (0.70-1.30); Calcium 9.4 mg/dL (8.5-10.1); Chloride 102 mmol/L (98-107); Glucose 129 mg/dL (74-106); Potassium 4.3 mmol/L (3.5-5.1); Sodium 136 mmol/L (136-145); Total Protein 7.2 g/dL (6.4-8.2)
[2020-01-08 12:38] LABS: C-Reactive Protein < 0.05 mg/dL (0.0-0.3)
[2020-01-09] MEDS: cefTRIAXone 2 GM/50 ML BAG IVPB (12:03)
[2020-01-09] MEDS: Normal Saline Flush 10 ML SYR IVP (12:03)
[2020-01-10] MEDS: Normal Saline Flush 10 ML SYR IVP (11:20)
[2020-01-10] MEDS: cefTRIAXone 2 GM/50 ML BAG IVPB (11:20)
[2020-01-11] MEDS: cefTRIAXone 2 GM/50 ML BAG IVPB (12:12)
[2020-01-11] MEDS: Normal Saline Flush 10 ML SYR IVP (12:22)
== END 2020-01-11 23:59 | disposition home or self-care (01) ==
LOC: INF 01:03
PROVIDERS: Family Medicine; Internal Medicine Infectious Disease; Internal Medicine Rheumatology; PCP Family Medicine; Visit Provider Internal Medicine
DX: M86.9 Osteomyelitis, unspecified (principal); Z79.01 Long term (current) use of anticoagulants; E11.9 Type 2 diabetes mellitus without complications
CPT/HCPCS: 36592; 80053; 96365; 85025; 85610; 86140

== ENCOUNTER 2020-01-16 02:08 | Outpatient (RCR) | payer OTHER, SELFPAY ==
[2020-01-12] MEDS: Normal Saline Flush 10 ML SYR IVP (11:34)
[2020-01-12] MEDS: cefTRIAXone 2 GM/50 ML BAG IVPB (11:34)
[2020-01-13] MEDS: cefTRIAXone 2 GM/50 ML BAG IVPB (11:51)
[2020-01-13] MEDS: Normal Saline Flush 10 ML SYR IVP (11:52)
[2020-01-14] MEDS: cefTRIAXone 2 GM/50 ML BAG IVPB (12:03)
[2020-01-14] MEDS: Normal Saline Flush 10 ML SYR IVP (12:34)
[2020-01-15] MEDS: Normal Saline Flush 10 ML SYR IVP (11:51)
[2020-01-15] MEDS: cefTRIAXone 2 GM/50 ML BAG IVPB (11:51)
[2020-01-15 12:12] LABS: Abs Immature Grans 0.01 k/cumm (0.0-0.09); Absolute Basophil Count 0.05 k/cumm (0.0-0.2); Absolute Eosinophil Count 0.23 k/cumm (0.0-0.7); Absolute Lymphocyte Count 1.04 k/cumm (1.2-3.4); Absolute Monocyte Count 0.72 k/cumm (0.11-0.7); Absolute Neutrophil Count 4.37 k/cumm (1.2-6.7); Basophils % 0.8; Eosinophils % 3.6; HCT 34.4 % (40.0-50.0); HGB 11.5 g/dL (13.5-17.5); Immature Grans % 0.2 %; Lymphocytes % 16.2; Mean Corp. HGB Concentration 33.4 g/dL (32.0-36.0); Mean Corpuscular Hemoglobin 32.1 pg (27.0-33.0); Mean Corpuscular Volume 96.1 fL (80-95); Mean Platelet Volume 10.1 fL (8.0-11.0); Monocytes % 11.2; Platelet Count 247 x1000/uL (130-400); RBC 3.58 m/cumm (4.50-6.00); RBC Distribution Width 12.9 % (11.8-14.1); White Blood Cell Count 6.42 k/cumm (4.4-10.8)
[2020-01-15 12:28] LABS: ALT 29 U/L (16-63); AST 26 U/L (15-37); Albumin 3.3 g/dL (3.4-5.0); Alkaline Phosphatase 62 U/L (46-116); Anion Gap 7.4 mmol/L (3-11); BUN 17 mg/dL (7-18); Bilirubin, Total 0.3 mg/dL (0.2-1.0); C-Reactive Protein < 0.05 mg/dL (0.0-0.3); CO2 26.6 mmol/L (21.0-32.0); CREATININE 1.31 mg/dL (0.70-1.30); Calcium 9.2 mg/dL (8.5-10.1); Chloride 101 mmol/L (98-107); Estimated GFR 53.79 (mL/min/1.73m2); Glucose 142 mg/dL (74-106); Potassium 4.1 mmol/L (3.5-5.1); Sodium 135 mmol/L (136-145); Total Protein 7.4 g/dL (6.4-8.2)
[2020-01-16] MEDS: cefTRIAXone 2 GM/50 ML BAG IVPB (11:54)
[2020-01-16] MEDS: Normal Saline Flush 10 ML SYR IVP (11:55)
== END 2020-02-11 23:59 | disposition home or self-care (01) ==
LOC: INF 02:08
PROVIDERS: PCP Family Medicine; Visit Provider Internal Medicine
DX: I48.91 Unspecified atrial fibrillation (principal); M86.9 Osteomyelitis, unspecified; Z79.2 Long term (current) use of antibiotics; Z79.01 Long term (current) use of anticoagulants
CPT/HCPCS: 36592; 80053; 96365; 85025; 86140

== ENCOUNTER 2020-01-26 02:38 | Outpatient (CLI) | payer OTHER, SELFPAY ==
[2020-01-26 09:31] LABS: INR 1.1 (0.9-1.1); Prothrombin Time 11.2 sec (9.3-11.0)
== END 2020-01-26 02:58 ==
PROVIDERS: PCP Family Medicine; Visit Provider Family Medicine
DX: I48.91 Unspecified atrial fibrillation (principal); Z79.01 Long term (current) use of anticoagulants
CPT/HCPCS: 36415; 85610

== ENCOUNTER 2020-03-12 13:45 | Outpatient (RCR) | payer OTHER, SELFPAY ==
[2020-02-16 13:23] LABS: INR 1.3 (0.9-1.1); Prothrombin Time 13.3 sec (9.3-11.0)
[2020-02-19 15:02] LABS: INR 1.1 (0.9-1.1); Prothrombin Time 10.9 sec (9.3-11.0)
[2020-02-26 11:24] LABS: INR 1.1 (0.9-1.1); Prothrombin Time 11.5 sec (9.3-11.0)
[2020-03-12 14:50] LABS: INR 1.1 (0.9-1.1); Prothrombin Time 11.5 sec (9.3-11.0)
== END 2020-03-12 23:59 | disposition home or self-care (01) ==
LOC: INF 13:45
PROVIDERS: PCP Family Medicine; Visit Provider Family Medicine
DX: I48.91 Unspecified atrial fibrillation (principal); Z79.01 Long term (current) use of anticoagulants; Z51.81 Encounter for therapeutic drug level monitoring
CPT/HCPCS: 36415; 85610

== ENCOUNTER 2020-04-01 13:00 | Outpatient (RCR) | payer OTHER, SELFPAY ==
[2020-03-18 14:36] LABS: INR 1.7 (0.9-1.1); Prothrombin Time 17.1 sec (9.3-11.0)
[2020-03-25 14:17] LABS: INR 2.1 (0.9-1.1); Prothrombin Time 20.9 sec (9.3-11.0)
[2020-04-01 13:15] LABS: INR 2.3 (0.9-1.1); Prothrombin Time 22.5 sec (9.3-11.0)
== END 2020-04-12 23:59 | disposition home or self-care (01) ==
LOC: INF 13:00
PROVIDERS: PCP Family Medicine; Visit Provider Family Medicine
DX: I48.91 Unspecified atrial fibrillation (principal)
CPT/HCPCS: 36415; 85610

== ENCOUNTER 2020-04-04 00:32 | Outpatient (CLI) | payer OTHER, SELFPAY ==
--- NOTE | 2020-04-04 | DI.US_ITS ---
APPROVED REPORT EXAM: Comprehensive 2D, Doppler, and color-flow Echocardiogram Patient Location: Out-Patient [employer] Supervisor: Shauna Briones RDCS ([place]) Indications: S/P Bioprosthetic AVR, s/p Mitral valve repair Other Information Study Quality: Adequate Conclusion Left Ventricle : Left ventricle is mildly dilated. The left ventricular systolic function is normal. The left ventricular ejection fraction is within the normal range. Mild concentric left ventricular h ypertrophy. There is normal LV segmental wall motion. Diastolic function is indeterminate LVEF is 60 %. Right Ventricle : The right ventricle is normal size. The right ventricular systolic function is norm al. The RVSP is 27.4 mmHg. Atria : Left atrium is severely dilated. Right atrium is moderately dilated. Aortic Valve : Bioprosthetic aortic valve is present. It appears well seated and functioning normally . No aortic regurgitation is present. The mean AoV gradient is 24mmHg. Great Vessels : The ascending aorta is severely dilated. Aortic arch is normal in caliber. IVC is nor mal in size and collapses >50% with inspiration. Compared to study from 2017 at , valvular function is grossly unchanged, the ascending aorta is sli ghtly larger. Wall motion Left Ventricle Left ventricle is mildly dilated. The left ventricular systolic function is normal. The left ventricu lar ejection fraction is within the normal range. Mild concentric left ventricular hypertrophy. There is normal LV segmental wall motion. Diastolic function is indeterminate LVEF is 60%. Right Ventricle The right ventricle is normal size. The right ventricular systolic function is normal. The RVSP is 27 .4 mmHg. Atria Left atrium is severely dilated. Right atrium is moderately dilated. Aortic Valve Bioprosthetic aortic valve is present. It appears well seated and functioning normally. The mean AoV gradient is 24mmHg. No aortic regurgitation is present. Mitral Valve Mitral annuloplasty changes are present. There is no significant stenosis. Mild mitral regurgitation. Tricuspid Valve The tricuspid valve is normal in structure. There is no tricuspid valve stenosis. Trace to mild tricu spid regurgitation. Pulmonic Valve The pulmonary valve is normal in structure. There is no pulmonic valvular stenosis. Trace to mild pul vero regurgitation. Great Vessels The aortic root is normal in size. The ascending aorta is severely dilated (4.6cm). Aortic arch is no rmal in caliber. IVC is normal in size and collapses >50% with inspiration. Pericardium There is no pericardial effusion. 2D Dimensions IVSD d PLAX 1.11 cm M: 0.6-1.2 LV Vol A2C d MOD 168.6 mL LVPW d PLAX 1.20 cm M: 0.6 - 1.2 LV Vol A4C d MOD 213.8 mL LVID d PLAX 6.05 cm M: 4.2 - 5.8 LA vol/ BSA A2C s A-L 50.8 mL/m2 LVDs 4.35 cm M: 2.5 - 4.0 LA vol/ BSA A4C s A-L 45.7 mL/m2 Ao Root d 2.72 cm M: 3.1 - 3.7 LA Vol/ BSA Biplane s A-L 53.9 mL/m2 RA Area A4C 17.65 cm2 LA Area A4C s MOD 30.91 cm2 RA Vol/ BSA A4C s A-L 18.7 mL/m2 LA Area A2C s MOD 29.17 cm2 Ao Asc Diam d 4.61 cm M: 2.6 - 3.4 LV EF A4C MOD 59.6 % LV EF Teichholz 52.9 % LV EF A2C MOD 58.2 % LVEF (Arellano's) 59.14 % M: 52 - 72 LV EF Biplane MOD 59.1 % LV Volume 136.14 mL M: 62 - 150 SV 113.41 mL LV Volume Index 57.20 mL/m2 M: 34 - 74 SV Index 47.62 mL/m2 LV Vol Biplane MOD 191.8 mL FS 27.70 % M-Mode TAPSE 2.56 cm (M/F) >1.7 LV Diastology E/A Ratio 1.7 MV E Vmax 1.24 (0.4-1.3 m/s) MV A Vmax 0.75 (0.4-1.3 m/s) MV E/A Ratio 1.58 Aortic Valve LVOT Area 2.82 cm2 AoV Area Vmax 1.26 cm2 LVOT Vmax 1.55 m/s AoV Area/ BSA (Vmax) 0.53 cm2/m2 LVOT Mean Jr. 0.92 m/s YAHIR Mean Jr. 1.11 cm2 LVOT Peak Grad 9.6 mmHg YAHIR Mean Jr. Index 0.47 cm2/m2 LVOT Mean Grad 4.2 mmHg LVOT VTI 0.336 m LVOT Diam s 1.85 cm AoV Vmax 3.45 m/s Velocity Ratio 0.44 AoV Mean Jr. 2.33 m/s AoV Peak Grad 47.7 mmHg LVOT SV 94.62 mL AoV Mean Grad 24.7 mmHg AoV VTI 0.704 m AoV Area VTI 1.34 cm2 AoV Area/ BSA (VTI) 0.56 cm/m2 Mitral Valve MV DT 334 (160-240 msec) MR Vmax 5.62 m/s MV PHT 97 msec MR VTI 1.563 m MV Area PHT 2.27 cm2 MR Peak Grad 126.4 mmHg MV VTI 0.561 m MR Mean Grad 89.7 mmHg MV Area VTI 1.69 (4.0-6.0 cm2) MR PISA Radius 0.36 cm MR EROA 0.05 cm2 MR Aliasing Velocity 0.35 m/s MR PISA 0.80 cm2 Pulmonary Valve PV Vmax 1.12 (0.5-1.5 m/s) RVOT Peak Gr. 3.05 mmHg PV Peak Grad 5.0 mmHg RVOT Mean Gr. 1.55 mmHg PV Mean Grad 3.2 mmHg RVOT VTI 0.153 m PV VTI 0.180 m RVOT Vmax 0.87 m/s Tricuspid Valve TR Peak Grad 24.3 mmHg TR Vmax 2.47 m/s RA Pressure 3.00 mmHg RVSP (TR) 27.4 mmHg
== END 2020-04-04 00:52 ==
PROVIDERS: PCP Family Medicine; Visit Provider Internal Medicine Cardiovascular Disease
DX: Z48.812 Encounter for surgical aftercare following surgery on the circulatory system (principal); Z95.3 Presence of xenogenic heart valve; I77.810 Thoracic aortic ectasia
CPT/HCPCS: 93306

== ENCOUNTER 2020-04-15 13:26 | Outpatient (REF) | payer OTHER, SELFPAY ==
[2020-04-15 14:38] LABS: Abs Immature Grans 0.03 10^3/uL (0.0-0.06); Absolute Basophil Count 0.07 10^3/uL (0.0-0.2); Absolute Eosinophil Count 0.29 10^3/uL (0.0-0.7); Absolute Lymphocyte Count 1.36 10^3/uL (1.2-3.4); Absolute Monocyte Count 0.95 10^3/uL (0.1-0.8); Absolute Neutrophil Count 5.74 10^3/uL (1.2-6.7); Basophils % 0.8; Eosinophils % 3.4; HCT 39.4 % (40.0-50.0); HGB 12.9 g/dL (13.5-17.5); Immature Grans % 0.4; Lymphocytes % 16.1; MCH 31.5 pg (27.0-33.0); MCHC 32.7 % (32.0-36.0); MCV 96.1 fL (80-95); MPV 10.5 fL (8.0-11.0); Monocytes % 11.3; Platelet Count 317 10^3/uL (130-400); RDW 12.9 % (11.8-14.1); RDW-SD 45.6 fL; WBC 8.44 10^3/uL (4.4-10.8)
[2020-04-15 14:48] LABS: ALT 35 U/L (16-63); AST 29 U/L (15-37); Albumin 3.7 g/dL (3.4-5.0); Alkaline Phosphatase 79 U/L (46-116); Anion Gap 9.3 mmol/L (3-11); BUN 19 mg/dL (7-18); Bilirubin, Total 0.4 mg/dL (0.2-1.0); C-Reactive Protein 0.27 mg/dL (0.0-0.3); CO2 26.7 mmol/L (21.0-32.0); CREATININE 1.17 mg/dL (0.70-1.30); Calcium 9.9 mg/dL (8.5-10.1); Chloride 101 mmol/L (98-107); Glucose 122 mg/dL (74-106); Potassium 4.2 mmol/L (3.5-5.1); Sodium 137 mmol/L (136-145); Total Protein 7.9 g/dL (6.4-8.2)
[2020-04-15 14:51] LABS: Hemoglobin A1C 6.8 % (3.8-5.6)
[2020-04-15 14:58] LABS: Calculated LDL 116 mg/dL (<100); Cholesterol 175 mg/dL (<200); HDL Cholesterol 30 mg/dL (40-60); Triglyceride 146 mg/dL (<150)
== END 2020-04-15 13:46 ==
LOC: LBN 13:26
PROVIDERS: PCP Family Medicine; Visit Provider Family Medicine
DX: E04.1 Nontoxic single thyroid nodule (principal); E11.9 Type 2 diabetes mellitus without complications; E78.5 Hyperlipidemia, unspecified; I10 Essential (primary) hypertension; L03.90 Cellulitis, unspecified; M86.9 Osteomyelitis, unspecified
CPT/HCPCS: 80053; 80061; 83036; 85025; 86140

== ENCOUNTER 2020-04-23 01:34 | Outpatient (CLI) | payer OTHER, SELFPAY ==
--- NOTE | 2020-04-23 | DI.MRI_ITS ---
EXAM: MR LOWER EXTREMITY RT WO/W CLINICAL HISTORY: RT LAT 5TH METATARSAL ULCER,RT PLANTAR HALLUX ULCER, ? OSTEOMYELITIS. TECHNIQUE: Multiplanar multisequence MRI was performed. CONTRAST MATERIAL: IV Contrast: 19 mL of Dotarem contrast administered. COMPARISON: MRI of the right foot from 12/04/2019. FINDINGS: BONES/JOINTS: There are destructive changes of the distal 3rd of the 5th metatarsal with marrow edema . There is marrow edema involving the proximal phalanx of the little toe with absence of the cortex posteriorly. Destructive changes are seen of the head of the 2nd metatarsal with associated marrow e anette. There has been an interval amputation of the 2nd toe. There is marrow edema seen in the dista l phalanx of the great toe. This is similar in appearance to the examination from 12/04/2019 prominen t cystic degenerative and hypertrophic changes are again seen at the 1st MTP joint. SOFT TISSUES: There is a soft tissue defect at the lateral plantar surface of the foot adjacent to th e distal 5th metatarsal. This would be consistent with an ulcer. There is edema seen in the soft ti ssues of the forefoot particularly around the distal aspects of the 2nd and 5th metatarsals. Enhancement: There is enhancement of the 5th metatarsal and proximal phalanx of the 5th toe the dista l 2nd metatarsal and the distal phalanx of the great toe. There is enhancement of the soft tissues o f the forefoot. No focal fluid collection is seen to suggest an abscess. IMPRESSION: 1. Findings most suggestive of osteomyelitis involving the 5th metatarsal, proximal phalanx of the 5t h toe, the 2nd metatarsal and possibly the distal phalanx of the great toe. 2. Findings suggestive of an soft tissue ulcer at the lateral and plantar surface of the foot adjacen t to the 5th metatarsal. 3. Stable marked degenerative changes of the 1st MTP joint. 4. Interval amputation of the 2nd toe. DATA REPOSITORY:
[2020-04-23] MEDS: Gadoterate meglumine 20 ML VIAL 19 ML IVP (12:10)
== END 2020-04-23 01:54 ==
PROVIDERS: PCP Family Medicine; Visit Provider Podiatrist Foot & Ankle Surgery
DX: M19.071 Primary osteoarthritis, right ankle and foot (principal); L97.419 Non-pressure chronic ulcer of right heel and midfoot with unspecified severity
CPT/HCPCS: 73720

== ENCOUNTER 2020-05-13 04:48 | Outpatient (CLI) | payer OTHER, SELFPAY ==
[2020-05-13 10:36] LABS: Calculated LDL 71 mg/dL (<100); Cholesterol 132 mg/dL (<200); HDL Cholesterol 29 mg/dL (40-60); Triglyceride 163 mg/dL (<150)
== END 2020-05-13 05:08 ==
PROVIDERS: PCP Family Medicine
DX: E78.5 Hyperlipidemia, unspecified (principal); Z98.890 Other specified postprocedural states
CPT/HCPCS: 36415; 80061

== ENCOUNTER 2020-08-12 12:22 | Outpatient (REF) | payer OTHER, SELFPAY ==
[2020-08-12 13:50] LABS: ALT 52 U/L (16-63); AST 32 U/L (15-37); Albumin 2.5 g/dL (3.4-5.0); Alkaline Phosphatase 83 U/L (46-116); Anion Gap 9.6 mmol/L (3-11); BUN 21 mg/dL (7-18); Bilirubin, Total 0.2 mg/dL (0.2-1.0); C-Reactive Protein 1.73 mg/dL (0.0-0.3); CO2 23.4 mmol/L (21.0-32.0); CREATININE 1.25 mg/dL (0.70-1.30); Calcium 9.2 mg/dL (8.5-10.1); Chloride 101 mmol/L (98-107); Estimated GFR 56.78 (mL/min/1.73m2); Glucose 158 mg/dL (74-106); Potassium 4.6 mmol/L (3.5-5.1); Sodium 134 mmol/L (136-145); Total Protein 6.6 g/dL (6.4-8.2)
[2020-08-12 14:17] LABS: Abs Immature Grans 0.07 10^3/uL (0.0-0.06); Absolute Basophil Count 0.05 10^3/uL (0.0-0.2); Absolute Eosinophil Count 0.29 10^3/uL (0.0-0.7); Absolute Lymphocyte Count 1.07 10^3/uL (1.2-3.4); Absolute Monocyte Count 0.81 10^3/uL (0.1-0.8); Absolute Neutrophil Count 6.38 10^3/uL (1.2-6.7); Basophils % 0.6; Eosinophils % 3.3; HCT 32.2 % (40.0-50.0); HGB 10.7 g/dL (13.5-17.5); Immature Grans % 0.8; Lymphocytes % 12.3; MCH 31.7 pg (27.0-33.0); MCHC 33.2 % (32.0-36.0); MCV 95.3 fL (80-95); MPV 9.4 fL (8.0-11.0); Monocytes % 9.3; Neutrophils % 73.7; Nucleated RBC 0 %; Platelet Count 452 10^3/uL (130-400); RBC 3.38 10^6/uL (4.36-5.78); RDW 12.8 % (11.8-14.1); RDW-SD 45.1 fL; WBC 8.67 10^3/uL (4.4-10.8)
[2020-08-12 15:21] LABS: ESR 103 mm/hr (1-20)
== END 2020-08-12 12:42 ==
LOC: LBN 12:22
PROVIDERS: PCP Family Medicine; Visit Provider Family Medicine
DX: E11.621 Type 2 diabetes mellitus with foot ulcer (principal); M86.18 Other acute osteomyelitis, other site; Z79.2 Long term (current) use of antibiotics
CPT/HCPCS: 80053; 85652; 85025; 86140

== ENCOUNTER 2020-08-19 15:18 | Outpatient (REF) | payer OTHER, SELFPAY ==
[2020-08-19 13:45] LABS: Abs Immature Grans 0.02 10^3/uL (0.0-0.06); Absolute Basophil Count 0.05 10^3/uL (0.0-0.2); Absolute Lymphocyte Count 1.45 10^3/uL (1.2-3.4); Absolute Monocyte Count 0.74 10^3/uL (0.1-0.8); Absolute Neutrophil Count 5.02 10^3/uL (1.2-6.7); Basophils % 0.7; Eosinophils % 2.7; HGB 11.5 g/dL (13.5-17.5); Immature Grans % 0.3; Lymphocytes % 19.4; MCH 31.2 pg (27.0-33.0); MCHC 32.9 % (32.0-36.0); MCV 94.9 fL (80-95); MPV 9.7 fL (8.0-11.0); Monocytes % 9.9; Nucleated RBC 0 %; Platelet Count 386 10^3/uL (130-400); RBC 3.69 10^6/uL (4.36-5.78); RDW 13.1 % (11.8-14.1); RDW-SD 45.8 fL; WBC 7.48 10^3/uL (4.4-10.8)
[2020-08-19 13:58] LABS: INR 1.7 (0.9-1.1); Prothrombin Time 17.2 sec (9.3-11.0)
[2020-08-19 14:00] LABS: ALT 35 U/L (16-63); AST 33 U/L (15-37); Alkaline Phosphatase 72 U/L (46-116); Anion Gap 8.7 mmol/L (3-11); BUN 19 mg/dL (7-18); Bilirubin, Total 0.3 mg/dL (0.2-1.0); C-Reactive Protein 0.19 mg/dL (0.0-0.3); CO2 26.3 mmol/L (21.0-32.0); CREATININE 1.28 mg/dL (0.70-1.30); Calcium 9.6 mg/dL (8.5-10.1); Chloride 101 mmol/L (98-107); Estimated GFR 55.24 (mL/min/1.73m2); Glucose 139 mg/dL (74-106); Potassium 4.4 mmol/L (3.5-5.1); Sodium 136 mmol/L (136-145); Total Protein 7.1 g/dL (6.4-8.2)
[2020-08-19 14:23] LABS: ESR 69 mm/hr (1-20)
== END 2020-08-19 15:38 ==
LOC: LBN 15:18
PROVIDERS: PCP Family Medicine; Visit Provider Podiatrist Foot & Ankle Surgery
DX: M86.671 Other chronic osteomyelitis, right ankle and foot (principal); Z79.2 Long term (current) use of antibiotics; I48.91 Unspecified atrial fibrillation; Z79.01 Long term (current) use of anticoagulants
CPT/HCPCS: 80053; 85652; 85025; 85610; 86140

== ENCOUNTER 2020-08-24 19:06 | Outpatient (REF) | payer OTHER, SELFPAY ==
[2020-08-24 17:20] LABS: Abs Immature Grans 0.02 10^3/uL (0.0-0.06); Absolute Basophil Count 0.04 10^3/uL (0.0-0.2); Absolute Eosinophil Count 0.26 10^3/uL (0.0-0.7); Absolute Lymphocyte Count 1.53 10^3/uL (1.2-3.4); Absolute Monocyte Count 0.77 10^3/uL (0.1-0.8); Absolute Neutrophil Count 5.81 10^3/uL (1.2-6.7); Basophils % 0.5; Eosinophils % 3.1; HCT 34.6 % (40.0-50.0); HGB 11.3 g/dL (13.5-17.5); Immature Grans % 0.2; Lymphocytes % 18.1; MCHC 32.7 % (32.0-36.0); MCV 94.8 fL (80-95); MPV 10.1 fL (8.0-11.0); Monocytes % 9.1; Nucleated RBC 0 %; Platelet Count 294 10^3/uL (130-400); RBC 3.65 10^6/uL (4.36-5.78); RDW 13.4 % (11.8-14.1); RDW-SD 47.4 fL; WBC 8.43 10^3/uL (4.4-10.8)
[2020-08-24 17:28] LABS: ALT 31 U/L (16-63); AST 30 U/L (15-37); Albumin 2.8 g/dL (3.4-5.0); Alkaline Phosphatase 74 U/L (46-116); Anion Gap 9.6 mmol/L (3-11); BUN 21 mg/dL (7-18); Bilirubin, Total 0.2 mg/dL (0.2-1.0); C-Reactive Protein 0.07 mg/dL (0.0-0.3); CO2 24.4 mmol/L (21.0-32.0); CREATININE 1.41 mg/dL (0.70-1.30); Calcium 9.4 mg/dL (8.5-10.1); Chloride 101 mmol/L (98-107); Estimated GFR 49.41 (mL/min/1.73m2); Glucose 121 mg/dL (74-106); Potassium 4.5 mmol/L (3.5-5.1); Sodium 135 mmol/L (136-145); Total Protein 6.8 g/dL (6.4-8.2)
[2020-08-24 18:01] LABS: ESR 53 mm/hr (1-20)
== END 2020-08-24 19:26 ==
LOC: LBN 19:06
PROVIDERS: PCP Family Medicine; Visit Provider Family Medicine
DX: E11.69 Type 2 diabetes mellitus with other specified complication (principal); Z79.2 Long term (current) use of antibiotics; Z89.421 Acquired absence of other right toe(s); M86.18 Other acute osteomyelitis, other site
CPT/HCPCS: 80053; 85652; 85025; 86140

== ENCOUNTER 2020-08-31 12:26 | Outpatient (REF) | payer OTHER, SELFPAY ==
[2020-08-31 12:33] LABS: Abs Immature Grans 0.02 10^3/uL (0.0-0.06); Absolute Basophil Count 0.05 10^3/uL (0.0-0.2); Absolute Eosinophil Count 0.23 10^3/uL (0.0-0.7); Absolute Lymphocyte Count 1.11 10^3/uL (1.2-3.4); Absolute Monocyte Count 0.72 10^3/uL (0.1-0.8); Absolute Neutrophil Count 4.48 10^3/uL (1.2-6.7); Basophils % 0.8; Eosinophils % 3.5; HCT 35.7 % (40.0-50.0); HGB 11.7 g/dL (13.5-17.5); Immature Grans % 0.3; Lymphocytes % 16.8; MCHC 32.8 % (32.0-36.0); MCV 94.7 fL (80-95); MPV 10.1 fL (8.0-11.0); Monocytes % 10.9; Neutrophils % 67.7; Nucleated RBC 0 %; Platelet Count 273 10^3/uL (130-400); RBC 3.77 10^6/uL (4.36-5.78); RDW 13.6 % (11.8-14.1); RDW-SD 47.7 fL; WBC 6.61 10^3/uL (4.4-10.8)
[2020-08-31 12:46] LABS: ALT 27 U/L (16-63); AST 28 U/L (15-37); Alkaline Phosphatase 71 U/L (46-116); Anion Gap 8.6 mmol/L (3-11); BUN 17 mg/dL (7-18); Bilirubin, Total 0.3 mg/dL (0.2-1.0); CO2 25.4 mmol/L (21.0-32.0); CREATININE 1.22 mg/dL (0.70-1.30); Calcium 9.9 mg/dL (8.5-10.1); Chloride 100 mmol/L (98-107); Estimated GFR 58.39 (mL/min/1.73m2); Glucose 183 mg/dL (74-106); Potassium 4.5 mmol/L (3.5-5.1); Sodium 134 mmol/L (136-145); Total Protein 6.9 g/dL (6.4-8.2)
[2020-08-31 12:49] LABS: C-Reactive Protein < 0.05 mg/dL (0.0-0.3)
[2020-08-31 14:57] LABS: ESR 46 mm/hr (1-20)
== END 2020-08-31 12:46 ==
LOC: LBN 12:26
PROVIDERS: PCP Family Medicine; Visit Provider Family Medicine
DX: E11.69 Type 2 diabetes mellitus with other specified complication (principal); M86.18 Other acute osteomyelitis, other site
CPT/HCPCS: 80053; 85652; 85025; 86140

== ENCOUNTER 2020-09-07 11:49 | Outpatient (REF) | payer OTHER, SELFPAY ==
[2020-09-07 12:11] LABS: Abs Immature Grans 0.02 10^3/uL (0.0-0.06); Absolute Basophil Count 0.04 10^3/uL (0.0-0.2); Absolute Lymphocyte Count 1.03 10^3/uL (1.2-3.4); Absolute Monocyte Count 0.68 10^3/uL (0.1-0.8); Absolute Neutrophil Count 3.95 10^3/uL (1.2-6.7); Basophils % 0.7; Eosinophils % 3.4; HCT 34.8 % (40.0-50.0); HGB 11.7 g/dL (13.5-17.5); Immature Grans % 0.3; Lymphocytes % 17.4; MCH 31.5 pg (27.0-33.0); MCHC 33.6 % (32.0-36.0); MCV 93.5 fL (80-95); Monocytes % 11.5; Neutrophils % 66.7; Nucleated RBC 0 %; Platelet Count 203 10^3/uL (130-400); RBC 3.72 10^6/uL (4.36-5.78); RDW 13.7 % (11.8-14.1); RDW-SD 47.3 fL; WBC 5.92 10^3/uL (4.4-10.8)
[2020-09-07 12:25] LABS: ALT 25 U/L (16-63); AST 25 U/L (15-37); Albumin 2.8 g/dL (3.4-5.0); Alkaline Phosphatase 60 U/L (46-116); Anion Gap 7.8 mmol/L (3-11); BUN 19 mg/dL (7-18); Bilirubin, Total 0.3 mg/dL (0.2-1.0); CO2 25.2 mmol/L (21.0-32.0); CREATININE 1.21 mg/dL (0.70-1.30); Calcium 9.3 mg/dL (8.5-10.1); Chloride 102 mmol/L (98-107); Estimated GFR 58.95 (mL/min/1.73m2); Glucose 134 mg/dL (74-106); Potassium 4.5 mmol/L (3.5-5.1); Sodium 135 mmol/L (136-145); Total Protein 6.4 g/dL (6.4-8.2)
[2020-09-07 12:26] LABS: C-Reactive Protein < 0.05 mg/dL (0.0-0.3)
[2020-09-07 13:00] LABS: ESR 31 mm/hr (1-20)
== END 2020-09-07 12:09 ==
LOC: LBN 11:49
PROVIDERS: PCP Family Medicine; Visit Provider Family Medicine
DX: M86.18 Other acute osteomyelitis, other site (principal); E11.69 Type 2 diabetes mellitus with other specified complication; Z79.2 Long term (current) use of antibiotics
CPT/HCPCS: 80053; 85652; 85025; 86140

== ENCOUNTER 2020-09-14 12:18 | Outpatient (REF) | payer OTHER, SELFPAY ==
[2020-09-14 12:55] LABS: Abs Immature Grans 0.03 10^3/uL (0.0-0.06); Absolute Basophil Count 0.05 10^3/uL (0.0-0.2); Absolute Eosinophil Count 0.21 10^3/uL (0.0-0.7); Absolute Lymphocyte Count 1.18 10^3/uL (1.2-3.4); Absolute Monocyte Count 0.68 10^3/uL (0.1-0.8); Absolute Neutrophil Count 5.49 10^3/uL (1.2-6.7); Basophils % 0.7; Eosinophils % 2.7; HGB 12.7 g/dL (13.5-17.5); Immature Grans % 0.4; Lymphocytes % 15.4; MCH 31.6 pg (27.0-33.0); MCHC 33.4 % (32.0-36.0); MCV 94.5 fL (80-95); Monocytes % 8.9; Neutrophils % 71.9; Nucleated RBC 0 %; Platelet Count 281 10^3/uL (130-400); RBC 4.02 10^6/uL (4.36-5.78); RDW-SD 48.8 fL; WBC 7.64 10^3/uL (4.4-10.8)
[2020-09-14 13:09] LABS: ALT 28 U/L (16-63); AST 28 U/L (15-37); Albumin 3.1 g/dL (3.4-5.0); Alkaline Phosphatase 62 U/L (46-116); Anion Gap 10.7 mmol/L (3-11); BUN 16 mg/dL (7-18); Bilirubin, Total 0.3 mg/dL (0.2-1.0); CO2 24.3 mmol/L (21.0-32.0); CREATININE 1.43 mg/dL (0.70-1.30); Calcium 9.5 mg/dL (8.5-10.1); Chloride 100 mmol/L (98-107); Estimated GFR 48.48 (mL/min/1.73m2); Glucose 172 mg/dL (74-106); Potassium 4.3 mmol/L (3.5-5.1); Sodium 135 mmol/L (136-145); Total Protein 7.1 g/dL (6.4-8.2)
[2020-09-14 13:31] LABS: ESR 38 mm/hr (1-20)
== END 2020-09-14 12:38 ==
LOC: LBN 12:18
PROVIDERS: PCP Family Medicine; Visit Provider Family Medicine
DX: E11.628 Type 2 diabetes mellitus with other skin complications (principal); L03.116 Cellulitis of left lower limb
CPT/HCPCS: 80053; 85652; 85025

== ENCOUNTER 2020-09-21 11:35 | Outpatient (REF) | payer OTHER, SELFPAY ==
[2020-09-21 12:51] LABS: HCT 35.4 % (40.0-50.0); HGB 11.7 g/dL (13.5-17.5); MCH 31.3 pg (27.0-33.0); MCHC 33.1 % (32.0-36.0); MCV 94.7 fL (80-95); MPV 9.9 fL (8.0-11.0); Platelet Count 252 10^3/uL (130-400); RBC 3.74 10^6/uL (4.36-5.78); WBC 5.45 10^3/uL (4.4-10.8)
[2020-09-21 13:04] LABS: ALT 27 U/L (16-63); AST 29 U/L (15-37); Alkaline Phosphatase 53 U/L (46-116); Anion Gap 10.5 mmol/L (3-11); BUN 19 mg/dL (7-18); Bilirubin, Total 0.4 mg/dL (0.2-1.0); CO2 24.5 mmol/L (21.0-32.0); CREATININE 1.29 mg/dL (0.70-1.30); Calcium 9.5 mg/dL (8.5-10.1); Chloride 100 mmol/L (98-107); Glucose 204 mg/dL (74-106); Potassium 4.5 mmol/L (3.5-5.1); Sodium 135 mmol/L (136-145); Total Protein 6.7 g/dL (6.4-8.2)
[2020-09-21 13:05] LABS: C-Reactive Protein < 0.05 mg/dL (0.0-0.3)
[2020-09-21 13:49] LABS: ESR 36 mm/hr (1-20)
== END 2020-09-21 11:55 ==
LOC: LBN 11:35
PROVIDERS: PCP Family Medicine; Visit Provider Family Medicine
DX: E11.9 Type 2 diabetes mellitus without complications (principal); R68.89 Other general symptoms and signs
CPT/HCPCS: 80053; 85027; 85652; 86140

== ENCOUNTER 2020-09-28 12:00 | Outpatient (REF) | payer OTHER, SELFPAY ==
[2020-09-28 12:44] LABS: Abs Immature Grans 0.01 10^3/uL (0.0-0.06); Absolute Basophil Count 0.06 10^3/uL (0.0-0.2); Absolute Lymphocyte Count 1.17 10^3/uL (1.2-3.4); Absolute Neutrophil Count 3.65 10^3/uL (1.2-6.7); Basophils % 1.1; Eosinophils % 3.5; HCT 36.1 % (40.0-50.0); HGB 12.1 g/dL (13.5-17.5); Immature Grans % 0.2; Lymphocytes % 20.6; MCH 31.9 pg (27.0-33.0); MCHC 33.5 % (32.0-36.0); MCV 95.3 fL (80-95); MPV 10.3 fL (8.0-11.0); Monocytes % 10.5; Neutrophils % 64.1; Nucleated RBC 0 %; Platelet Count 245 10^3/uL (130-400); RBC 3.79 10^6/uL (4.36-5.78); RDW 13.7 % (11.8-14.1); RDW-SD 48.6 fL; WBC 5.69 10^3/uL (4.4-10.8)
[2020-09-28 12:56] LABS: ALT 27 U/L (16-63); AST 27 U/L (15-37); Albumin 3.2 g/dL (3.4-5.0); Alkaline Phosphatase 64 U/L (46-116); Anion Gap 5.9 mmol/L (3-11); BUN 20 mg/dL (7-18); Bilirubin, Total 0.4 mg/dL (0.2-1.0); C-Reactive Protein < 0.05 mg/dL (0.0-0.3); CO2 28.1 mmol/L (21.0-32.0); CREATININE 1.19 mg/dL (0.70-1.30); Calcium 9.5 mg/dL (8.5-10.1); Chloride 103 mmol/L (98-107); Estimated GFR 59.92 (mL/min/1.73m2); Glucose 148 mg/dL (74-106); Potassium 4.4 mmol/L (3.5-5.1); Sodium 137 mmol/L (136-145); Total Protein 6.9 g/dL (6.4-8.2); Uric Acid 7.5 mg/dL (3.5-7.2)
[2020-09-28 13:11] LABS: Iron 94 ug/dL (65-175)
[2020-09-28 13:33] LABS: ESR 35 mm/hr (1-20)
[2020-09-29 05:00] LABS: Hemoglobin A1C 6.2 % (<5.7)
== END 2020-09-28 12:20 ==
LOC: LBN 12:00
PROVIDERS: PCP Family Medicine; Visit Provider Podiatrist Foot & Ankle Surgery
DX: I10 Essential (primary) hypertension (principal); E11.9 Type 2 diabetes mellitus without complications; M10.9 Gout, unspecified; L03.115 Cellulitis of right lower limb; L03.031 Cellulitis of right toe
CPT/HCPCS: 80053; 85027; 85652; 83036; 83540; 84550; 85025; 86140

== ENCOUNTER 2020-11-05 13:02 | Outpatient (CLI) | payer OTHER, SELFPAY ==
--- NOTE | 2020-11-05 13:00 | RT.EKG_ITS ---
APPROVED REPORT Exam: Resting ECG Patient Location: O HR:43 bpm ECG Measurements Heart Rate 43 AXIS OH 273 P -39 QRSd 171 QRS -63 QT 547 T 18 QTc 466 Conclusion Sinus bradycardia...rate< 60 Prolonged OH interval...OH >230, V-rate 30- 49 Right bundle branch block...QRSd>120, terminal axis(90,270) Left ventricular hypertrophy...multiple LVH criteria Inferior infarct, old...Q >35mS, II III aVF
== END 2020-11-05 13:03 | disposition home or self-care (01) ==
LOC: DI.CM 13:03
PROVIDERS: PCP Family Medicine; Visit Provider Family Medicine
DX: R00.1 Bradycardia, unspecified (principal); I45.10 Unspecified right bundle-branch block
CPT/HCPCS: 93010

== ENCOUNTER → 2021-01-02 10:17 | Outpatient (BNVA) | payer OTHER, SELFPAY | PROVIDERS: PCP Family Medicine; Referring Provider Family Medicine; Visit Provider Nurse Practitioner Adult Health | DX: G56.01 Carpal tunnel syndrome, right upper limb (principal); G56.21 Lesion of ulnar nerve, right upper limb | CPT/HCPCS: 95909; 99203 ==

== ENCOUNTER 2021-10-20 14:11 | Outpatient (REF) | payer MEDICARE, SELFPAY ==
[2021-10-20 18:45] LABS: Bilirubin Negative (Negative); Blood Negative (Negative); Clarity Sl Cloudy (Clear); Glucose Negative (Negative); Ketones Trace mg/dL (Negative); Leukocyte Esterase Trace (Negative); Nitrite Negative (Negative); Specific Gravity 1.025 (1.005-1.025); Urobilinogen 0.2 EU/dL (Up TO 0.2)
[2021-10-20 19:03] LABS: WBC >50 HPF (0-5)
[2021-10-20 19:04] LABS: Bacteria Many HPF (Negative); C & S Indicated? Yes; Crystals Negative HPF (Negative); Epithelial Cells Negative HPF (Negative); Mucus Negative (Negative); Other Cells Few Renal (Negative)
== END 2021-10-20 14:12 | disposition home or self-care (01) ==
LOC: LBN 14:11
PROVIDERS: PCP Family Medicine; Visit Provider Family Medicine
DX: R39.15 Urgency of urination (principal)
CPT/HCPCS: 87077; 81003; 81015; 87086; 87186

== ENCOUNTER 2021-11-12 01:58 | Outpatient (CLI) | payer MEDICARE, SELFPAY ==
[2021-11-12 08:09] LABS: COMMENT (LAB VIEW ONLY) 72.88 mg/dL
[2021-11-12 08:10] LABS: Microalb ug/mg Crea 131.4 ug/mg Cr
[2021-11-12 08:25] LABS: Calculated LDL 56 mg/dL (<100); Cholesterol 135 mg/dL (<200); HDL Cholesterol 32 mg/dL (40-60); Triglyceride 235 mg/dL (<150)
== END 2021-11-12 01:59 | disposition home or self-care (01) ==
PROVIDERS: PCP Family Medicine; Visit Provider Family Medicine
DX: E11.9 Type 2 diabetes mellitus without complications (principal); I10 Essential (primary) hypertension
CPT/HCPCS: 36415; 80061; 82043; 82570

== ENCOUNTER 2021-11-24 01:53 | Outpatient (CLI) | payer MEDICARE, SELFPAY ==
[2021-11-24 10:41] LABS: HCT 35.1 % (40.0-50.0); HGB 11.9 g/dL (13.5-17.5); MCH 33.5 pg (27.0-33.0); MCHC 33.9 % (32.0-36.0); MCV 98.9 fL (80-95); MPV 9.2 fL (8.0-11.0); Platelet Count 235 10^3/uL (130-400); RBC 3.55 10^6/uL (4.36-5.78); RDW-SD 44.4 fL; WBC 7.39 10^3/uL (4.4-10.8)
[2021-11-24 11:44] LABS: ALT 27 U/L (16-63); AST 23 U/L (15-37); Albumin 3.6 g/dL (3.4-5.0); Alkaline Phosphatase 88 U/L (46-116); Anion Gap 11.2 mmol/L (3-11); BUN 23 mg/dL (7-18); Bilirubin, Total 0.3 mg/dL (0.2-1.0); CO2 21.8 mmol/L (21.0-32.0); CREATININE 1.3 mg/dL (0.70-1.30); Calcium 9.4 mg/dL (8.5-10.1); Chloride 101 mmol/L (98-107); Estimated GFR 53.96 (mL/min/1.73m2); Glucose 196 mg/dL (74-106); Potassium 4.5 mmol/L (3.5-5.1); Sodium 134 mmol/L (136-145); Total Protein 7.1 g/dL (6.4-8.2)
[2021-11-24 19:02] LABS: PSA, Diagnostic 1.3 ng/mL (0.0-6.5)
== END 2021-11-24 01:54 | disposition home or self-care (01) ==
LOC: LBO 01:53
PROVIDERS: PCP Family Medicine; Visit Provider Family Medicine
DX: I10 Essential (primary) hypertension (principal); E04.1 Nontoxic single thyroid nodule; N40.0 Benign prostatic hyperplasia without lower urinary tract symptoms; Z79.01 Long term (current) use of anticoagulants; Z95.2 Presence of prosthetic heart valve
CPT/HCPCS: 36415; 80053; 85027; 84153

== ENCOUNTER 2022-05-21 01:45 | Outpatient (CLI) | payer MEDICARE, SELFPAY ==
--- NOTE | 2022-05-21 07:00 | DI.RAD_ITS ---
Exam(s) XR CERVICAL SPINE COMP 4-5V EXAM: XR CERVICAL SPINE COMP 4-5V CLINICAL HISTORY: neck pain,M54.2. TECHNIQUE: 2D digital imaging was performed. Six images were obtained. AP, odontoid, lateral and eliezer ateral oblique images were obtained. COMPARISON: No exams were available for comparison FINDINGS: The odontoid is intact. The lateral masses are well aligned. There is normal alignment of the cervi portia spine. There is disc space narrowing at C4-C5. Endplate osteophytes are seen from C4-C5 through C7-T1. Degenerative changes of the facets are seen at multiple levels. No acute fracture or subluxa tion is present. There is mild narrowing of the neural foramen on the left at C4-C5. There is mild n arrowing of the neural foramen on the right from C4-5 through C5-C6. The cervical thoracic junction i s well maintained. The prevertebral soft tissues are unremarkable. Lung apices are clear. 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 DATA REPOSITORY: RADIATION DOSE DELIVERED:
== END 2022-05-21 02:05 ==
LOC: DI 01:45
PROVIDERS: PCP Family Medicine; Visit Provider Family Medicine
DX: M47.812 Spondylosis without myelopathy or radiculopathy, cervical region (principal)
CPT/HCPCS: 72050

== ENCOUNTER 2022-09-25 00:23 | Outpatient (CLI) | payer MEDICARE, SELFPAY ==
--- NOTE | 2022-09-25 08:15 | DI.RAD_ITS ---
Exam(s) XR CHEST 2V PA LATERAL EXAM: XR CHEST 2V PA LATERAL CLINICAL HISTORY: uri - 2 weeks,J06.9 TECHNIQUE: 2D digital imaging was performed of the chest. Three images were obtained. PA and later al views were obtained. COMPARISON: CR XR CHEST 2V PA LATERAL from 03/30/2019 FINDINGS: MEDIASTINUM: Normal. HEART: Normal. Mitral and aortic valve replacements are present. PULMONARY VASCULATURE: Normal. LUNGS: No focal consolidating infiltrates are seen. PLEURAL SPACE: There is blunting of the left costophrenic angle. This may represent scarring or smal l effusion. No right effusion is seen. No pneumothorax is present. BONE:Within normal limits for the patient's age. OTHER FINDINGS:Normal. IMPRESSION: 1. No focal consolidation. 2. Blunting of the left costophrenic angle which may represent scarring or small effusion. DATA REPOSITORY: RADIATION DOSE DELIVERED:
== END 2022-09-25 00:43 ==
LOC: DI 00:23
PROVIDERS: PCP Family Medicine; Visit Provider Family Medicine
DX: J06.9 Acute upper respiratory infection, unspecified (principal)
CPT/HCPCS: 71046

== ENCOUNTER 2022-09-25 12:27 | Outpatient (CLI) | payer MEDICARE, SELFPAY ==
[2022-09-25 10:15] LABS: HCT 35.1 % (40.0-50.0); MCH 34.1 pg (27.0-33.0); MCHC 34.2 % (32.0-36.0); MCV 100 fL (80-95); MPV 9.4 fL (8.0-11.0); Platelet Count 290 10^3/uL (130-400); RBC 3.52 10^6/uL (4.36-5.78); RDW-SD 43.8 fL; WBC 8.52 10^3/uL (4.4-10.8)
[2022-09-25 11:10] LABS: ALT 45 U/L (16-63); AST 35 U/L (15-37); Albumin 3.2 g/dL (3.4-5.0); Alkaline Phosphatase 78 U/L (46-116); Anion Gap 7.7 mmol/L (3-11); BUN 25 mg/dL (7-18); Bilirubin, Total 0.4 mg/dL (0.2-1.0); CO2 27.3 mmol/L (21.0-32.0); CREATININE 1.4 mg/dL (0.70-1.30); Chloride 101 mmol/L (98-107); Estimated GFR 52.41 (mL/min/1.73m2); Ferritin 225 ng/mL (26-388); Glucose 169 mg/dL (74-106); Potassium 4.5 mmol/L (3.5-5.1); Sodium 136 mmol/L (136-145); Total Protein 7.5 g/dL (6.4-8.2)
[2022-09-25 11:23] LABS: Iron 66 ug/dL (65-175)
[2022-09-25 11:26] LABS: Uric Acid 6.6 mg/dL (3.5-7.2)
[2022-09-25 20:25] LABS: PSA, Diagnostic 0.6 ng/mL (<=6.5)
[2022-09-25 22:57] LABS: Estimated Average Glucose 148 mg/dL; Hemoglobin A1C 6.8 % (<5.7)
== END 2022-09-25 12:28 | disposition home or self-care (01) ==
LOC: LBO 12:28
PROVIDERS: PCP Family Medicine; Visit Provider Family Medicine
DX: I10 Essential (primary) hypertension; N40.0 Benign prostatic hyperplasia without lower urinary tract symptoms; D64.9 Anemia, unspecified; K63.5 Polyp of colon; M10.9 Gout, unspecified; E11.9 Type 2 diabetes mellitus without complications
CPT/HCPCS: 36415; 80053; 85027; 82728; 83036; 83540; 84153; 84550

== ENCOUNTER 2022-12-14 14:37 | Outpatient (REF) | payer MEDICARE, SELFPAY ==
[2022-12-14 21:29] LABS: COMMENT (LAB VIEW ONLY) 78.56 mg/dL
[2022-12-14 22:12] LABS: Microalb ug/mg Crea 210.3 ug/mg Cr
== END 2022-12-14 14:38 | disposition home or self-care (01) ==
LOC: LBN 14:37
PROVIDERS: PCP Family Medicine; Visit Provider Family Medicine
DX: E11.9 Type 2 diabetes mellitus without complications (principal)
CPT/HCPCS: 82043; 82570

== ENCOUNTER 2023-05-07 13:17 | Outpatient (REF) | payer MEDICARE, SELFPAY ==
[2023-05-07 15:34] LABS: Abs Immature Grans 0.03 10^3/uL (0.0-0.06); Absolute Eosinophil Count 0.17 10^3/uL (0.0-0.7); Absolute Lymphocyte Count 1.08 10^3/uL (1.2-3.4); Absolute Monocyte Count 0.56 10^3/uL (0.1-0.8); Absolute Neutrophil Count 5.23 10^3/uL (1.2-6.7); Basophils % 1.4; Eosinophils % 2.4; HCT 33.2 % (40.0-50.0); HGB 10.9 g/dL (13.5-17.5); Immature Grans % 0.4; Lymphocytes % 15.1; MCH 32.2 pg (27.0-33.0); MCHC 32.8 % (32.0-36.0); MCV 98 fL (80-95); MPV 10.2 fL (8.0-11.0); Monocytes % 7.8; Neutrophils % 72.9; Platelet Count 354 10^3/uL (130-400); RBC 3.39 10^6/uL (4.36-5.78); RDW 12.4 % (11.8-14.1); RDW-SD 44.8 fL; WBC 7.17 10^3/uL (4.4-10.8)
[2023-05-07 16:56] LABS: ALT 20 U/L (16-63); AST 18 U/L (15-37); Albumin 2.8 g/dL (3.4-5.0); Alkaline Phosphatase 59 U/L (46-116); Anion Gap 14.1 mmol/L (3-11); BUN 20 mg/dL (7-18); Bilirubin, Total 0.3 mg/dL (0.2-1.0); CO2 17.9 mmol/L (21.0-32.0); CREATININE 1.3 mg/dL (0.70-1.30); Calcium 8.2 mg/dL (8.5-10.1); Chloride 108 mmol/L (98-107); Estimated GFR 57.29 (mL/min/1.73m2); Glucose 152 mg/dL (74-106); Sodium 140 mmol/L (136-145)
== END 2023-05-07 13:18 | disposition home or self-care (01) ==
LOC: LBN 13:17
PROVIDERS: PCP Family Medicine; Visit Provider Podiatrist Foot & Ankle Surgery
DX: Z79.2 Long term (current) use of antibiotics; M86.672 Other chronic osteomyelitis, left ankle and foot; R79.89 Other specified abnormal findings of blood chemistry; D64.9 Anemia, unspecified
CPT/HCPCS: 80053; 85652; 85025; 86140

== ENCOUNTER 2023-05-14 13:04 | Outpatient (REF) | payer MEDICARE, SELFPAY ==
[2023-05-14 13:44] LABS: Abs Immature Grans 0.01 10^3/uL (0.0-0.06); Absolute Basophil Count 0.06 10^3/uL (0.0-0.2); Absolute Eosinophil Count 0.29 10^3/uL (0.0-0.7); Absolute Lymphocyte Count 0.99 10^3/uL (1.2-3.4); Absolute Monocyte Count 0.56 10^3/uL (0.1-0.8); Absolute Neutrophil Count 4.04 10^3/uL (1.2-6.7); Eosinophils % 4.9; HCT 33.1 % (40.0-50.0); HGB 11.1 g/dL (13.5-17.5); Immature Grans % 0.2; Lymphocytes % 16.6; MCH 32.2 pg (27.0-33.0); MCHC 33.5 % (32.0-36.0); MCV 96 fL (80-95); MPV 10.4 fL (8.0-11.0); Monocytes % 9.4; Neutrophils % 67.9; Platelet Count 245 10^3/uL (130-400); RBC 3.45 10^6/uL (4.36-5.78); RDW 12.5 % (11.8-14.1); RDW-SD 43.3 fL; WBC 5.95 10^3/uL (4.4-10.8)
[2023-05-14 13:48] LABS: ESR 29 mm/hr (0-20)
[2023-05-14 13:58] LABS: ALT 16 U/L (16-63); AST 20 U/L (15-37); Albumin 3.4 g/dL (3.4-5.0); Alkaline Phosphatase 63 U/L (46-116); Anion Gap 10.1 mmol/L (3-11); BUN 26 mg/dL (7-18); Bilirubin, Total 0.3 mg/dL (0.2-1.0); CO2 23.9 mmol/L (21.0-32.0); CREATININE 1.4 mg/dL (0.70-1.30); Calcium 9.7 mg/dL (8.5-10.1); Chloride 100 mmol/L (98-107); Estimated GFR 52.41 (mL/min/1.73m2); Glucose 172 mg/dL (74-106); Potassium 4.7 mmol/L (3.5-5.1); Sodium 134 mmol/L (136-145); Total Protein 7.3 g/dL (6.4-8.2)
[2023-05-14 14:04] LABS: C-Reactive Protein < 0.05 mg/dL (0.0-0.3)
== END 2023-05-14 13:05 | disposition home or self-care (01) ==
LOC: LBN 13:04
PROVIDERS: PCP Family Medicine; Visit Provider Podiatrist Foot & Ankle Surgery
DX: L03.116 Cellulitis of left lower limb (principal); E11.621 Type 2 diabetes mellitus with foot ulcer; E11.42 Type 2 diabetes mellitus with diabetic polyneuropathy; L97.512 Non-pressure chronic ulcer of other part of right foot with fat layer exposed; M86.672 Other chronic osteomyelitis, left ankle and foot; L97.528 Non-pressure chronic ulcer of other part of left foot with other specified severity; R70.0 Elevated erythrocyte sedimentation rate; R79.89 Other specified abnormal findings of blood chemistry
CPT/HCPCS: 80053; 85652; 85025; 86140

== ENCOUNTER 2023-05-21 16:22 | Outpatient (REF) | payer MEDICARE, SELFPAY ==
[2023-05-21 18:08] LABS: Abs Immature Grans 0.02 10^3/uL (0.0-0.06); Absolute Basophil Count 0.07 10^3/uL (0.0-0.2); Absolute Eosinophil Count 0.35 10^3/uL (0.0-0.7); Absolute Lymphocyte Count 0.87 10^3/uL (1.2-3.4); Absolute Monocyte Count 0.66 10^3/uL (0.1-0.8); Absolute Neutrophil Count 4.12 10^3/uL (1.2-6.7); Basophils % 1.1; Eosinophils % 5.7; HCT 34.2 % (40.0-50.0); HGB 11.2 g/dL (13.5-17.5); Immature Grans % 0.3; Lymphocytes % 14.3; MCH 32.1 pg (27.0-33.0); MCHC 32.7 % (32.0-36.0); MCV 98 fL (80-95); MPV 10.5 fL (8.0-11.0); Monocytes % 10.8; Neutrophils % 67.8; Platelet Count 198 10^3/uL (130-400); RBC 3.49 10^6/uL (4.36-5.78); RDW 12.8 % (11.8-14.1); RDW-SD 45.5 fL; WBC 6.09 10^3/uL (4.4-10.8)
[2023-05-21 18:12] LABS: ESR 20 mm/hr (0-20)
[2023-05-21 18:28] LABS: ALT 16 U/L (16-63); AST 18 U/L (15-37); Albumin 3.5 g/dL (3.4-5.0); Alkaline Phosphatase 73 U/L (46-116); Anion Gap 10.8 mmol/L (3-11); BUN 24 mg/dL (7-18); Bilirubin, Total 0.4 mg/dL (0.2-1.0); C-Reactive Protein 0.15 mg/dL (0.0-0.3); CO2 23.2 mmol/L (21.0-32.0); CREATININE 1.5 mg/dL (0.70-1.30); Calcium 9.9 mg/dL (8.5-10.1); Chloride 102 mmol/L (98-107); Estimated GFR 48.25 (mL/min/1.73m2); Glucose 201 mg/dL (74-106); Potassium 4.5 mmol/L (3.5-5.1); Sodium 136 mmol/L (136-145)
== END 2023-05-21 16:23 | disposition home or self-care (01) ==
LOC: LBN 16:22
PROVIDERS: PCP Family Medicine; Visit Provider Podiatrist Foot & Ankle Surgery
DX: M86.672 Other chronic osteomyelitis, left ankle and foot (principal); R70.0 Elevated erythrocyte sedimentation rate; E11.621 Type 2 diabetes mellitus with foot ulcer; I10 Essential (primary) hypertension
CPT/HCPCS: 80053; 85652; 85025; 86140

== ENCOUNTER 2023-07-20 08:38 | Outpatient (REF) | payer MEDICARE, SELFPAY ==
--- NOTE | 2023-07-20 07:30 | SKI_PTH ---
PATIENT: Nick Bauman SR LOC: [facility] U#:[id number] AGE/SX: 77/M ROOM: RE07/20/[address]: Jesus Manuel Monique MD : [id number] BED: DIS: 07/20/2023 SPEC #: [id number] RECD: 07/20/23 17:07 STATUS: LENY REShawnee #: [id number] IAN: 07/20/23 07:[address]: Jesus Manuel Monique DEPT: Surgical Specimen RECD BY: Shelia Winter ENTERED: 07/20/23 17:08 SP TYPE: IGOR MARTINEZ DR: Natasha Coulter MD, DC Tissues: 1 - SKIN BIOPSY(SHAVE/PUNCH) 2 - SKIN BIOPSY(SHAVE/PUNCH) Procedures: SKIN LEVEL 4 Comments: [id number]
== END 2023-07-20 08:39 | disposition home or self-care (01) ==
LOC: LBN 08:38
PROVIDERS: PCP Family Medicine; Visit Provider Otolaryngology
DX: L98.9 Disorder of the skin and subcutaneous tissue, unspecified (principal); C44.91 Basal cell carcinoma of skin, unspecified
CPT/HCPCS: 88305

== ENCOUNTER 2024-01-28 11:32 | Outpatient (CLI) | payer MEDICARE, SELFPAY ==
[2024-01-28 13:21] LABS: Folate 15.1 ng/mL (8.6-20.0); Vitamin B12 288 pg/mL (193-986)
== END 2024-01-28 11:33 | disposition home or self-care (01) ==
LOC: LOS 11:32
PROVIDERS: PCP Family Medicine; Visit Provider Family Medicine
DX: D64.9 Anemia, unspecified (principal)
CPT/HCPCS: 36415; 82607; 82746

== ENCOUNTER 2024-01-28 11:37 | Outpatient (REF) | payer MEDICARE, SELFPAY ==
[2024-01-28 13:22] LABS: COMMENT (LAB VIEW ONLY) 59.82 mg/dL; Microalb ug/mg Crea 55.2 ug/mg Cr
== END 2024-01-28 11:38 | disposition home or self-care (01) ==
LOC: LBN 11:37
PROVIDERS: PCP Family Medicine; Visit Provider Family Medicine
DX: E11.40 Type 2 diabetes mellitus with diabetic neuropathy, unspecified
CPT/HCPCS: 82043; 82570

== ENCOUNTER 2024-06-02 11:22 | Outpatient (CLI) | payer MEDICARE, SELFPAY ==
[2024-06-02 12:25] LABS: Abs Immature Grans 0.02 10^3/uL (0.0-0.06); Absolute Basophil Count 0.07 10^3/uL (0.0-0.2); Absolute Eosinophil Count 0.23 10^3/uL (0.0-0.7); Absolute Monocyte Count 0.61 10^3/uL (0.1-0.8); Absolute Neutrophil Count 4.85 10^3/uL (1.2-6.7); Eosinophils % 3.3 %; HCT 34.2 % (40.0-50.0); HGB 11.4 g/dL (13.5-17.5); Immature Grans % 0.3 %; Lymphocytes % 17.2 %; MCH 32.9 pg (27.0-33.0); MCHC 33.3 % (32.0-36.0); MCV 99 fL (80-95); MPV 10.4 fL (8.0-11.0); Monocytes % 8.7 %; Neutrophils % 69.5 %; Platelet Count 211 10^3/uL (130-400); RBC 3.47 10^6/uL (4.36-5.78); RDW 14.6 % (11.8-14.1); WBC 6.98 10^3/uL (4.4-10.8)
[2024-06-02 12:30] LABS: ALT 26 U/L (16-63); AST 24 U/L (15-37); Albumin 3.8 g/dL (3.4-5.0); Alkaline Phosphatase 68 U/L (46-116); Anion Gap 12.6 mmol/L (3-11); BUN 44 mg/dL (7-18); Bilirubin, Total 0.57 mg/dL (0.2-1.0); CO2 21.4 mmol/L (21.0-32.0); CREATININE 1.9 mg/dL (0.70-1.30); Chloride 102 mmol/L (98-107); Estimated GFR 36.11 (mL/min/1.73m2); Glucose 109 mg/dL (74-106); Magnesium 1.9 mg/dL (1.8-2.4); Potassium 4.7 mmol/L (3.5-5.1); Sodium 136 mmol/L (136-145); Total Protein 7.7 g/dL (6.4-8.2)
== END 2024-06-02 11:23 | disposition home or self-care (01) ==
LOC: LOS 11:23
PROVIDERS: PCP Family Medicine; Visit Provider Family Medicine
DX: E11.9 Type 2 diabetes mellitus without complications (principal); E11.40 Type 2 diabetes mellitus with diabetic neuropathy, unspecified; M86.9 Osteomyelitis, unspecified; N17.9 Acute kidney failure, unspecified; Z00.00 Encounter for general adult medical examination without abnormal findings; Z23 Encounter for immunization; I21.4 Non-ST elevation (NSTEMI) myocardial infarction; I48.91 Unspecified atrial fibrillation; R07.89 Other chest pain; G89.18 Other acute postprocedural pain
CPT/HCPCS: 36415; 80053; 83735; 85025

== ENCOUNTER 2024-10-06 10:09 | Outpatient (CLI) | payer MEDICARE, SELFPAY ==
[2024-10-06 12:28] LABS: Abs Immature Grans 0.03 10^3/uL (0.0-0.06); Absolute Basophil Count 0.06 10^3/uL (0.0-0.2); Absolute Eosinophil Count 0.23 10^3/uL (0.0-0.7); Absolute Lymphocyte Count 1.32 10^3/uL (1.2-3.4); Absolute Monocyte Count 0.86 10^3/uL (0.1-0.8); Absolute Neutrophil Count 5.07 10^3/uL (1.2-6.7); Basophils % 0.8 %; HCT 32.8 % (40.0-50.0); Immature Grans % 0.4 %; Lymphocytes % 17.4 %; MCH 33.7 pg (27.0-33.0); MCHC 33.5 % (32.0-36.0); MCV 101 fL (80-95); MPV 10.4 fL (8.0-11.0); Monocytes % 11.4 %; Platelet Count 230 10^3/uL (130-400); RBC 3.26 10^6/uL (4.36-5.78); RDW 12.6 % (11.8-14.1); RDW-SD 46.6 fL; WBC 7.57 10^3/uL (4.4-10.8)
[2024-10-06 13:19] LABS: ALT 19 U/L (16-63); AST 27 U/L (15-37); Albumin 4.1 g/dL (3.4-5.0); Alkaline Phosphatase 66 U/L (46-116); Anion Gap 10.1 mmol/L (3-11); BUN 23 mg/dL (7-18); Bilirubin, Total 0.45 mg/dL (0.2-1.0); CO2 24.9 mmol/L (21.0-32.0); CREATININE 1.8 mg/dL (0.70-1.30); Calcium 10.4 mg/dL (8.5-10.1); Chloride 104 mmol/L (98-107); Estimated GFR 38.29 (mL/min/1.73m2); Glucose 135 mg/dL (74-106); Magnesium 1.9 mg/dL (1.8-2.4); PHOSPHORUS 3.3 mg/dL (2.6-4.7); Potassium 4.9 mmol/L (3.5-5.1); Sodium 139 mmol/L (136-145); Total Protein 7.7 g/dL (6.4-8.2); Vitamin D 25 Total 72.4 ng/mL (30-100)
== END 2024-10-06 10:10 | disposition home or self-care (01) ==
LOC: LOS 10:09
PROVIDERS: PCP Family Medicine; Referring Provider Family Medicine; Visit Provider Family Medicine
DX: N18.31 Chronic kidney disease, stage 3a (principal); Z00.00 Encounter for general adult medical examination without abnormal findings; E11.9 Type 2 diabetes mellitus without complications; E11.40 Type 2 diabetes mellitus with diabetic neuropathy, unspecified; G56.01 Carpal tunnel syndrome, right upper limb; I48.91 Unspecified atrial fibrillation; I10 Essential (primary) hypertension; R20.0 Anesthesia of skin
CPT/HCPCS: 36415; 80053; 82306; 83735; 83970; 84100; 85025